=== PATIENT | female | born 1935 | race African-American/Black ===

== ENCOUNTER 2019-03-08 12:24 | Emergency (ER) | payer MEDICARE ==
[2019-03-08 13:33] LABS: #Eosinphils 0.2 thou/uL (0.0-0.7); #Lymphocytes 1.8 thou/uL (1.20-3.40); #Monocytes 0.5 thou/uL (0.11-0.59); #Neutrophils 2.5 thou/uL (1.40-6.50); %Basophils 0.1 % (0.0-1.0); %Eosinophils 4.3 % (0.0-10.0); %Lymphocytes 35.7 % (21.0-51.0); %Monocytes 10.3 % (0.0-10.0); %Neutrophils 49.6 % (42.0-75.0); Mean Corpuscular HGB CONC 31.1 g/dL (32.0-36.0); Mean Corpuscular Hemoglobin 24.8 pg (27.0-31.0); Mean Corpuscular Volume 79.8 fL (78.0-98.0); Mean Platelet Volume 8.7 fL (7.4-10.4); Platelet Count 173 thou/uL (130-400); RBC Distribution Width 13.5 % (11.5-14.5); Red Blood Cell (RBC) Count 5.24 mill/uL (4.20-5.40)
[2019-03-08 13:54] LABS: ALT (SGPT) 11 U/L (8-55); AST (SGOT) 19 U/L (5-34); Albumin 3.8 g/dL (3.4-4.8); Alkaline Phosphatase 87 U/L (40-150); Anion Gap 14 mmol/L (10-20); BUN (Urea Nitrogen) 22 mg/dL (9.8-20.1); Bilirubin, Total 0.4 mg/dL (0.2-1.2); Calc. Creatinine Clearance 0 mL/min (70-130); Carbon Dioxide 23 mmol/L (23-31); Chloride 106 mmol/L (98-107); Estimated GFR-MDRD 55; Globulin 3.5 g/dL (2.4-3.5); Glucose 98 mg/dL (83-110); Potassium 4.6 mmol/L (3.5-5.1); Protein, Total 7.3 g/dL (6.0-8.3); Sodium 138 mmol/L (136-145)
--- NOTE | 2019-03-08 13:58 | RAD ---
PORTABLE CHEST ONE VIEW: 03/08/19 at 1:38 p.m. HISTORY: Bilateral lower extremity swelling and chest pain. FINDINGS: The heart is enlarged. The aorta is tortuous. The lungs are expanded without lobar consolidation, pne umothoraces, jagjit pulmonary edema or pleural effusions. IMPRESSION: Cardiomegaly without evidence of overt CHF. POS: [facility]
== END 2019-03-08 15:12 | disposition home or self-care (01) ==
LOC: ERS 12:24
DX: M79.89 Other specified soft tissue disorders (principal)
CPT/HCPCS: 36415; 71045; 80053; 83880; 84484; 85025; 93005

== ENCOUNTER 2020-07-29 15:40 | Inpatient (IN) | payer MEDICARE, OTHER ==
--- NOTE | 2020-07-29 16:37 | RAD ---
Exam: Chest one view HISTORY:Headache Comparison: 02/28/2019 FINDINGS: Cardiac silhouette:Cardiomegaly Aorta: Elongated Pulmonary vessels: Normal Costophrenic angles: Clear LUNGS: Hyperinflation. Chronic changes. No consolidation or mass. Pneumothorax: None Osseous abnormalities: None IMPRESSION: No acute cardiopulmonary process.
[2020-07-29 16:57] LABS: #Eosinphils 0.1 thou/uL (0.0-0.7); #Lymphocytes 1.3 thou/uL (1.20-3.40); #Monocytes 0.6 thou/uL (0.11-0.59); #Neutrophils 2.5 thou/uL (1.40-6.50); %Basophils 0.4 % (0.0-1.0); %Eosinophils 2.9 % (0.0-10.0); %Lymphocytes 28.8 % (21.0-51.0); %Monocytes 12.3 % (0.0-10.0); %Neutrophils 55.7 % (42.0-75.0); Hemoglobin 12.8 g/dL (12.0-16.0); Mean Corpuscular HGB CONC 32.3 g/dL (32.0-36.0); Mean Corpuscular Hemoglobin 25.2 pg (27.0-31.0); Mean Corpuscular Volume 78.1 fL (78.0-98.0); Mean Platelet Volume 8.6 fL (7.4-10.4); Platelet Count 188 thou/uL (130-400); RBC Distribution Width 13.1 % (11.5-14.5); Red Blood Cell (RBC) Count 5.06 mill/uL (4.20-5.40); White Blood Cell (WBC) Count 4.5 thou/uL (4.8-10.8)
[2020-07-29 17:02] LABS: INR-International Normal Ratio 1.2; PTT 25.7 sec (22.9-36.1); Prothrombin Time 14.9 sec (12.0-14.7)
[2020-07-29 17:10] LABS: ALT (SGPT) 9 U/L (8-55); AST (SGOT) 18 U/L (5-34); Albumin 3.6 g/dL (3.4-4.8); Alkaline Phosphatase 81 U/L (40-110); Anion Gap 12 mmol/L (10-20); BUN (Urea Nitrogen) 31 mg/dL (9.8-20.1); Bilirubin, Total 0.4 mg/dL (0.2-1.2); CK (CPK) 104 U/L (29-168); Calc. Creatinine Clearance 0 mL/min (70-130); Calcium 8.8 mg/dL (7.8-10.44); Carbon Dioxide 25 mmol/L (23-31); Chloride 104 mmol/L (98-107); Estimated GFR-MDRD 40; Globulin 3.9 g/dL (2.4-3.5); Glucose 99 mg/dL (83-110); Potassium 3.7 mmol/L (3.5-5.1); Protein, Total 7.5 g/dL (6.0-8.3); Sodium 137 mmol/L (136-145)
[2020-07-29] MEDS ORDERED: Meclizine HCl 25 MG TAB ONE (17:21)
--- NOTE | 2020-07-29 17:39 | CT ---
Head CT without contrast 07/29/2020: COMPARISON: 05/27/2015 HISTORY: Headaches, dizziness TECHNIQUE: Axial CT imaging at 5 mm intervals from vertex through skull base without contrast FINDINGS: The visualized paranasal sinuses and mastoid air cells are well-aerated. No displaced lucie rial fracture, intracranial hemorrhage, midline shift, or mass effect. Stable calcification in the region of the basal ganglia and bilateral cerebellar hemispheres. IMPRESSION: Stable head CT-no acute findings.
[2020-07-29 17:52] LABS: Bilirubin Negative (Negative); Blood, Urine Negative (Negative); Clarity Clear (Clear); Glucose, Urine (Dipstick) Normal (Negative); Ketone, Urine Negative (Negative); Leukocyte Negative Leu/uL (Negative); Nitrite Negative (Negative); Protein, Urine (Dipstick) Negative (Neg-Trace); Specific Gravity, Urine 1.008 (1.002-1.036); Urobilinogen Normal mg/dL (Less than 2); pH, Urine 6.5 (5.0-9.0)
[2020-07-29] MEDS ORDERED: Aspirin 325 MG TAB ONE (19:09)
--- NOTE | 2020-07-29 19:49 | PDOC.HHP ---
Hospitalist HPI - History of Present Illness Dizziness History of Present Illness: PCP: Dr. Cortez (Ac and Janny) The patient is an 85-year-old female with a past medical history significant for hypertension, GERD and chronic back pain that presents to the emergency department for the above complaint. The patient reports waking in her usual health. She reports that she took a shower and then walked out to her porch this morning. As she was ambulating out to the porch, she became dizzy. She reports that she "felt like she was going to pass out". She denies any vertigo or LOC. She had to sit down in a chair. There is a reported complaint of headache in the ER note, however, the patient denies having a headache when I interviewed her. She reports that she had an associated change in vision, stating that her vision "went black". This lasted for unknown amount of time. She denies any changes in speech or focal motor deficits. She denies any recent fall or trauma. She denies any neck stiffness or fever. She denies loss with sense of smell, she has no known Covid contacts. Denies any recent surgery or change in her medications. She denies chest pain, heart palpitations. She reports chronic, mild swelling to her bilateral, lower extremities. Denies pain to lower extremities. No history of DVT/PE. Denies history of diabetes or any other endocrine conditions. She reports having a recent UTI, for which she took an unknown antibiotic for 2 weeks. She reports that she finished that antibiotic approximately 3 days ago. Currently, she denies any dysuria, urinary frequency or urgency. She has no vaginal discharge. She has no other complaints at this time. ED Course: VITAL SIGNS Burt Jul 29, 2020 15:41 EBONIE Chilel Lauren BP: 116/64, Pulse: 64, Resp: 16, Temp: 98.4 (Oral), Pain: 10, O2 sat: 98 on (Room Air), Time: 07/29/2020 15:41. VITAL SIGNS Burt Jul 29, 2020 16:33 EBONIE Rogers Jenifer BP: 108/49, MAP: 68, Pulse: 61, Resp: 21 (Non-Labored), Pain: 3, O2 sat: 97 on (Room Air), Time: 07/29/2020 16:33. VITAL SIGNS Burt Jul 29, 2020 16:39 EBONIE Kraus Emily BP: 108/49, MAP: 68, Pulse: 59, Resp: 19, O2 sat: 97 on (Room Air), Time: 07/29/2020 16:39. VITAL SIGNS ThuJul 29, 2020 17:24 EBONIE Landry Miranda BP: 119/58, Pulse: 57, Resp: 19, Time: 07/29/2020 17:24. VITAL SIGNS ThuJul 29, 2020 17:27 EBONIE Landry Miranda BP: 117/71 (Lying), Resp: 18, Time: 07/29/2020 17:27. VITAL SIGNS ThuJul 29, 2020 17:28 EBONIE Landry Miranda BP: 138/76 (Sitting), Resp: 15, Time: 07/29/2020 17:28. VITAL SIGNS ThuJul 29, 2020 17:29 EBONIE Landry Miranda BP: 141/74 (Standing), Time: 07/29/2020 17:29. VITAL SIGNS ThuJul 29, 2020 17:30 EBONIE Landry Miranda BP: 125/71 (Standing), Resp: 15, Time: 07/29/2020 17:30. VITAL SIGNS ThuJul 29, 2020 18:01 EBONIE Landry Miranda BP: 136/52, Pulse: 54, Resp: 17, O2 sat: 95 on (Room Air), Time: 07/29/2020 18:01. Medication administration: meclizine 25 mg Oral Given 17:23 07/29/2020 Aspirin 325mg oral Hospitalist ROS - Review of Systems All other systems reviewed; all pertinent +/- noted in HPI/Subj - Medication Medications: Patient unable to reconcile at bedside. Allergies: NKDA Hospitalist History - Past Medical History Source: patient, RN notes reviewed Cardiac: reports: HTN Gastrointestinal: reports: GERD Musculoskeletal: reports: Other (Chronic back pain) - Past Surgical History Past Surgical History: reports: , Other (Cervical surgery ()) - Family History Family History: reports: cardiac disorder (Both sons had myocardial infarction). denies: cerebrovascular accident - Social History Smoking Status: Never smoker Alcohol: reports: None Drugs: reports: none Living Situation: With Family Occupation: Retired Activity level: independent ambulation - Exam General Appearance: NAD, awake alert Eye: PERRL, anicteric sclera ENT: normocephalic atraumatic Neck: supple, symmetric, no JVD Heart: no murmur, no gallops, no rubs, normal peripheral pulses Heart - other findings: Intermittent bradycardia on monitor, 47 bpm Respiratory: CTAB, no wheezes, no rales, no ronchi, normal chest expansion, no tachypnea Gastrointestinal: soft, non-tender, non-distended, normal bowel sounds, no bruit, no guarding, no rigidity Gastrointestinal - other findings: Negative Rovsing sign, negative Fuentes sign Extremities: no cyanosis, 1+ LE edema Skin: no rashes Neurological: cranial nerve grossly intact, no focal deficits Musculoskeletal: normal tone, normal strength Psychiatric: normal affect, A&O x 3 Hospitalist Results - Labs Result Diagrams: 07/29/20 16:44 07/29/20 16:44 Lab results: WBC 4.5 thou/uL (4.8-10.8) L 07/29/20 16:44 Hgb 12.8 g/dL (12.0-16.0) 07/29/20 16:44 Hct 39.5 % (36.0-47.0) 07/29/20 16:44 MCV 78.1 fL (78.0-98.0) 07/29/20 16:44 Plt Count 188 thou/uL (130-400) 07/29/20 16:44 Neutrophils % 55.7 % (42.0-75.0) 07/29/20 16:44 Sodium 137 mmol/L (136-145) 07/29/20 16:44 Potassium 3.7 mmol/L (3.5-5.1) 07/29/20 16:44 Chloride 104 mmol/L (98-107) 07/29/20 16:44 Carbon Dioxide 25 mmol/L (23-31) 07/29/20 16:44 BUN 31 mg/dL (9.8-20.1) H 07/29/20 16:44 Creatinine 1.49 mg/dL (0.6-1.1) H 07/29/20 16:44 Glucose 99 mg/dL (83-110) 07/29/20 16:44 Calcium 8.8 mg/dL (7.8-10.44) 07/29/20 16:44 Total Bilirubin 0.4 mg/dL (0.2-1.2) 07/29/20 16:44 AST 18 U/L (5-34) 07/29/20 16:44 ALT 9 U/L (8-55) 07/29/20 16:44 Alkaline Phosphatase 81 U/L (40-110) 07/29/20 16:44 Creatine Kinase 104 U/L (29-168) 07/29/20 16:44 Troponin I Less than 0.010 ng/mL (< 0.028) 07/29/20 16:44 B-Natriuretic Peptide 79.2 pg/mL (0-100) 07/29/20 16:44 Serum Total Protein 7.5 g/dL (6.0-8.3) 07/29/20 16:44 Albumin 3.6 g/dL (3.4-4.8) 07/29/20 16:44 Urine Ketones Negative mg/dL (Negative) 07/29/20 17:38 Urine Blood Negative (Negative) 07/29/20 17:38 Urine Nitrite Negative (Negative) 07/29/20 17:38 Ur Leukocyte Esterase Negative Gaston/uL (Negative) 07/29/20 17:38 - EKG Interpretation EK lead EKG interpreted by Emergency Department Physician at time of study, 12 lead EKG shows normal sinus rhythm, Rate (beats per minute): 60, with no ectopics, Conduction with, incomplete right bundle branch block, first degree AV block, ST segments normal, T waves normal, Frankewing normal, Clinical impression:, non-specific EKG. - Radiology Interpretation Chest x-ray Status: report reviewed by me Additional Comment: IMPRESSION: No acute cardiopulmonary process. CT scan - head Status: report reviewed by me Additional Comment: IMPRESSION: Stable head CT-no acute findings Hospitalist H&P A/P - Problem (1) Near syncope Status: Acute (2) Symptomatic bradycardia Code(s): R00.1 - BRADYCARDIA, UNSPECIFIED Status: Acute (3) LUCIA (acute kidney injury) Code(s): N17.9 - ACUTE KIDNEY FAILURE, UNSPECIFIED Status: Acute (4) Constipation, chronic Code(s): K59.09 - OTHER CONSTIPATION Status: Chronic (5) Hypertension Code(s): I10 - ESSENTIAL (PRIMARY) HYPERTENSION Status: Chronic (6) GERD (gastroesophageal reflux disease) Code(s): K21.9 - GASTRO-ESOPHAGEAL REFLUX DISEASE WITHOUT ESOPHAGITIS Status: Chronic (7) Chronic back pain Code(s): M54.9 - DORSALGIA, UNSPECIFIED; G89.29 - OTHER CHRONIC PAIN Status: Chronic - Plan Plan: 85/F with PMH HTN, GERD, chronic back pain presents for near syncope. Admit to stroke unit, observation status. Expected length of stay less than 2 midnights. Presented stable vital signs. EKG NSR, incomplete RBBB, first-degree AV block. Troponin negative, BNP 79.2, CK 104. CXR Cardiomegaly, hyperinflated lungs. No acute cardiopulmonary process. Creatinine 1.49, BUN 31 CT brain no acute process. #Near syncope Rule out stroke. Order MRI, CD US, echocardiogram. Check TSH, FLP, mag level, folate and B12. Consult neurology and stroke team. Check orthostatic vital signs. Continue aspirin, start statin. Permissive hypertension. #Symptomatic bradycardia EKG as above. Reported sinus bradycardia 34 bpm on monitor at bedside per nursing. Upon assessment, heart monitor 47 bpm. Heart rate increased to greater than 60 bpm spontaneously. Patient asymptomatic at that time. Continue cardiac monitoring. Order echocardiogram. Consult cardiology. Check TSH, mag level. #LUCIA Presented creatinine 1.49, was 1.14 on 02/27. Reported recent ABX for UTI, unknown name. Denies any NSAIDs, diuretics, recent sore throat. Order renal ultrasound. Give gentle IV fluid resuscitation. Recheck levels in a.m. Avoid nephrotoxic medications. #Constipation, chronic Appears stable. LBM 2 days ago, which is normal for her. Takes milk of mag as needed. #Hypertension Presented normotensive. Unable to reconcile home medications at bedside. Family agreed to get home medication list and give to nurse. We will restart home medications as appropriate. #GERD Takes unknown medication at home. We will start Protonix. #Chronic back pain Appears stable. Does not take home medications for this condition. Heparin for DVT prophylaxis. Protonix for GI prophylaxis. Full code. Designated medical decision-maker is her daughter, Rema Tee at [phone]. Discussed case with Dr. Dee.
[2020-07-29] MEDS ORDERED: Ondansetron ODT 4 MG TAB PO PRN (20:29)
[2020-07-29] MEDS ORDERED: Calcium Carbonate 500 MG ChewTAB PO PRN (20:29)
[2020-07-29] MEDS ORDERED: Senokot S 8.6-50 MG TAB PO PRN (20:29)
[2020-07-29] MEDS ORDERED: Bisacodyl 5 MG TAB PO PRN (20:29)
[2020-07-29 21:45] LABS: Troponin I Less than 0.010 ng/mL (< 0.028)
[2020-07-29] MEDS: Sodium Chloride 0.9% 1,000 ML IV SCH (23:24)
[2020-07-29] MEDS: Heparin 5,000 UNITS/ML VIAL SC SCH (23:24)
[2020-07-29] MEDS: Atorvastatin Calcium 40 MG TAB PO SCH (23:25)
--- NOTE | 2020-07-29 23:33 | PDOC.EVN ---
Event Note - Event Note Event Note: Nursing reported 2 second pause and 2.2 second pause with junctional escape beat. Lowest HR 20s, BP 136/59. Patient was asymptomatic.
[2020-07-29 23:53] LABS: Troponin I Less than 0.010 ng/mL (< 0.028)
[2020-07-30 00:19] LABS: Amphetamine Not Detected (NotDetected); Barbiturates Screen Not Detected (NotDetected); Benzodiazepine Screen Not Detected (NotDetected); Cocaine Metabolite Screen Not Detected (NotDetected); Medtox Control Line Valid? VALID (VALID); Medtox Reader # READER 4; Methadone Not Detected (NotDetected); Methamphetamine Not Detected (NotDetected); Opiate Screen Not Detected (NotDetected); Oxycodone Screen Not Detected (NotDetected); Phencyclidine (PCP) Not Detected (NotDetected); THC/Cannabinoid Screen Not Detected (NotDetected); Tricyclic Screen Not Detected (NotDetected)
[2020-07-30 00:30] VITALS: BMI 32.9
[2020-07-30 04:33] LABS: #Eosinphils 0.2 thou/uL (0.0-0.7); #Lymphocytes 1.5 thou/uL (1.20-3.40); #Monocytes 0.4 thou/uL (0.11-0.59); #Neutrophils 1.9 thou/uL (1.40-6.50); %Basophils 0.7 % (0.0-1.0); %Eosinophils 3.9 % (0.0-10.0); %Lymphocytes 38.1 % (21.0-51.0); %Neutrophils 47.3 % (42.0-75.0); Hemoglobin 12.4 g/dL (12.0-16.0); Mean Corpuscular HGB CONC 31.1 g/dL (32.0-36.0); Mean Corpuscular Hemoglobin 24.4 pg (27.0-31.0); Mean Corpuscular Volume 78.4 fL (78.0-98.0); Mean Platelet Volume 8.6 fL (7.4-10.4); Platelet Count 190 thou/uL (130-400); RBC Distribution Width 13.2 % (11.5-14.5); Red Blood Cell (RBC) Count 5.09 mill/uL (4.20-5.40)
[2020-07-30] MEDS ORDERED: Lorazepam 2 MG/ML VIAL SLOW IVP SCH (04:45)
[2020-07-30 04:57] LABS: Anion Gap 11 mmol/L (10-20); BUN (Urea Nitrogen) 25 mg/dL (9.8-20.1); Calc. Creatinine Clearance 51 mL/min (70-130); Calcium 8.7 mg/dL (7.8-10.44); Carbon Dioxide 25 mmol/L (23-31); Cardiac Risk 4.7 (Less than 4.5); Chloride 106 mmol/L (98-107); Cholesterol 163 mg/dl (< 200 Desired); Estimated GFR-MDRD 56; Glucose 98 mg/dL (83-110); HDL Cholesterol 35 mg/dL (>60 Neg Risk); LDL Cholesterol, Calculated 108 mg/dL; Potassium 3.8 mmol/L (3.5-5.1); Sodium 138 mmol/L (136-145); Triglycerides 102 mg/dL (Less than 150)
[2020-07-30] MEDS: Sodium Chloride 0.9% 1,000 ML IV SCH ×2 (07:35→14:56)
--- NOTE | 2020-07-30 09:36 | ULT ---
EXAM: Carotid ultrasound HISTORY: Near syncope COMPARISON: None TECHNIQUE: Multiplanar grayscale and color Doppler images were obtained in a carotid ultrasound. Spec tral analysis of the Doppler waveforms were performed. FINDINGS: No significant plaque is visualized in either internal carotid artery. No significant plaque is seen in either common carotid artery. The Doppler waveforms are normal in the visualized vessels. Peak systolic velocity in the right internal carotid artery 90 cm/s. Peak systolic velocity in the right common carotid artery 77 cm/s. The right ICA/CCA ratio is 1.2. Peak systolic velocity in the left internal carotid artery 43 cm/s. Peak systolic velocity in the left common carotid artery 98 cm/s. The left ICA/CCA ratio is 0.4. Both vertebral arteries demonstrate antegrade flow without focal stenosis IMPRESSION: No evidence of hemodynamically significant stenosis.
--- NOTE | 2020-07-30 09:47 | ULT ---
ULTRASOUND RENAL BILATERAL STANDARD: HISTORY: Acute kidney injury. COMPARISON: None. FINDINGS: Real-time, broussard scale, and color evaluation of the kidneys and urinary bladder was performed. The right kidney measures 7.9 x 4.6 x 3.9 cm without mass, hydronephrosis, or abnormal calcifications . The left kidney measures 9.1 x 4.9 x 4.7 cm also without mass, hydronephrosis, or abnormal calcifi cations. Urinary bladder volume prevoid is 399 mL. IMPRESSION: No evidence for obstructive uropathy. POS: [facility]
[2020-07-30] MEDS: Aspirin 81 mg Enteric Coated Tablet PO SCH (10:07)
[2020-07-30] MEDS: Heparin 5,000 UNITS/ML VIAL SC SCH ×2 (10:08→23:28)
[2020-07-30 11:04] LABS: SARS-CoV-2 MS2 Positive; SARS-CoV-2 N Gene Negative; SARS-CoV-2 S Gene Negative; SARS-CoV-2 by NAA Not Detected (NotDetected); SARS-CoV-2 orf1ab Negative
--- NOTE | 2020-07-30 12:24 | PDOC.HOSPP ---
- Subjective Encounter Date: 07/30/20 Subjective: The patient denies any chest pain or shortness of breath. Her dizziness has now resolved. - Objective Vital Signs & Weight: Vital Signs (12 hours) Temp Pulse Resp BP Pulse Ox 07/30/20 11:38 97.8 F 59 L 18 202/68 H 95 07/30/20 07:25 97.2 F L 63 15 153/60 H 99 07/30/20 04:24 97.8 F 59 L 16 148/66 H 100 07/30/20 00:24 96 Weight Weight 191 lb 11.2 oz Result Diagrams: 07/30/20 04:06 07/30/20 04:06 Hospitalist ROS - Medication Medications: Active Medications Generic Name Dose Route Start Last Admin Trade Name Freq PRN Reason Stop Dose Admin Aspirin 81 mg 07/30/20 09:00 07/30/20 10:07 Aspirin 81 Mg Enteric Coated Tablet PO 81 mg DAILY CAROL Administration Atorvastatin Calcium 40 mg 07/29/20 21:00 07/29/20 23:25 Atorvastatin Calcium 40 Mg Tab PO 40 mg HS CAROL Administration Heparin Sodium (Porcine) 5,000 units 07/29/20 21:00 07/30/20 10:08 Heparin 5,000 Units/Ml Vial SC 5,000 units BID CAROL Administration Sodium Chloride 1,000 mls @ 100 mls/hr 07/29/20 20:30 07/30/20 07:35 Normal Saline 0.9% IV Not Given .Q10H CAROL Pantoprazole Sodium 40 mg 07/30/20 09:00 07/30/20 10:08 Pantoprazole 40 Mg Tab PO 40 mg DAILY CAROL Administration - Exam General Appearance: awake alert ENT: normocephalic atraumatic Neck: supple, no JVD Respiratory: normal chest expansion, no tachypnea Gastrointestinal: soft, non-tender, non-distended Neurological: cranial nerve grossly intact, no focal deficits Hosp A/P (1) Near syncope Status: Acute (2) Symptomatic bradycardia Code(s): R00.1 - BRADYCARDIA, UNSPECIFIED Status: Acute (3) GERD (gastroesophageal reflux disease) Code(s): K21.9 - GASTRO-ESOPHAGEAL REFLUX DISEASE WITHOUT ESOPHAGITIS Status: Chronic (4) Hypertension Code(s): I10 - ESSENTIAL (PRIMARY) HYPERTENSION Status: Chronic - Plan Symptomatic bradycardia causing near syncopal episode. Patient is alternating between sinus bradycardia and junctional rhythm. Cardiology service consulted. Neurological event is unlikely. MRI has been canceled. We will have an accurate list of her home medications as of now. I will review them once we obtain them. We will discontinue any chronotropic medications. Her blood pressure is currently uncontrolled. Start amlodipine 10 mg orally daily.
--- NOTE | 2020-07-30 12:26 | CON ---
NEUROLOGY CONSULTATION DATE OF CONSULTATION: 07/30/2020 REASON FOR CONSULTATION: Dizziness. HISTORY OF PRESENT ILLNESS: Ms. Blake is an 85-year-old female with medical history significant for hypertension, GERD, and back pain, presented to the emergency room with dizziness. Per patient, she woke up in her usual health and took a shower and walked out of the porch yesterday morning when she became extremely dizzy. She felt as if she is going to pass out. The patient denies the room spinning in front of her eyes and did not lose consciousness. She also denies focal weakness, focal paresthesias, nausea, vomiting, headache, chest pain, abdominal pain, recent illness, loss of spell, or recent exposure to COVID. Per patient, she does have an associated change in vision and her vision went black for unknown amount of time. She denies any problems with speech or swallowing. In the emergency room she was given meclizine and aspirin, and admitted for further evaluation. REVIEW OF SYSTEMS: All systems were reviewed and were negative except for the pertinent positives and negatives mentioned in the HPI. PAST MEDICAL HISTORY: Hypertension, GERD, chronic back pain. PAST SURGICAL HISTORY: section, cervical surgery in 1989. FAMILY HISTORY: Coronary artery disease. Both sons have myocardial infarction. SOCIAL HISTORY: The patient denies smoking, alcohol, or illegal drug use. Vital Signs & Weight: Vital Signs (12 hours) Temp Pulse Resp BP Pulse Ox 07/30/20 11:38 97.8 F 59 L 18 202/68 H 95 07/30/20 07:25 97.2 F L 63 15 153/60 H 99 07/30/20 04:24 97.8 F 59 L 16 148/66 H 100 07/30/20 00:24 96 Weight Weight 191 lb 11.2 oz : Active Medications Generic Name Dose Route Start Last Admin Trade Name Freq PRN Reason Stop Dose Admin Aspirin 81 mg 07/30/20 09:00 07/30/20 10:07 Aspirin 81 Mg Enteric Coated Tablet PO 81 mg DAILY CAROL Administration Atorvastatin Calcium 40 mg 07/29/20 21:00 07/29/20 23:25 Atorvastatin Calcium 40 Mg Tab PO 40 mg HS CAROL Administration Heparin Sodium (Porcine) 5,000 units 07/29/20 21:00 07/30/20 10:08 Heparin 5,000 Units/Ml Vial SC 5,000 units BID CAROL Administration Sodium Chloride 1,000 mls @ 100 mls/hr 07/29/20 20:30 07/30/20 07:35 Normal Saline 0.9% IV Not Given .Q10H CAROL Pantoprazole Sodium 40 mg 07/30/20 09:00 07/30/20 10:08 Pantoprazole 40 Mg Tab PO 40 mg DAILY CAROL Administration PHYSICAL EXAMINATION: General Appearance: awake alert ENT: normocephalic atraumatic Neck: supple, no JVD Respiratory: normal chest expansion, no tachypnea Gastrointestinal: soft, non-tender, non-distended Neurological: Mental status; the patient is alert and oriented to person, place, and time. Recent and remote memory intact. Speech is clear. Motor, muscle tone, and bulk are normal. Strength 5/5 bilaterally. Sensory intact. Cerebellar; finger-nose testing intact. Gait deferred due to patient's safety reasons. DATA REVIEWED: I reviewed the labs, which are significant for BUN of 31 and creatinine of 1.49. Rest were essentially unremarkable. Chest x-ray did not reveal acute cardiopulmonary process. Head CT did not reveal any acute finding. ASSESSMENT AND PLAN: (1) Near syncope Status: Acute (2) Symptomatic bradycardia Code(s): R00.1 - BRADYCARDIA, UNSPECIFIED Status: Acute (3) GERD (gastroesophageal reflux disease) Code(s): K21.9 - GASTRO-ESOPHAGEAL REFLUX DISEASE WITHOUT ESOPHAGITIS Status: Chronic (4) Hypertension Code(s): I10 - ESSENTIAL (PRIMARY) HYPERTENSION Status: Chronic Ms. Blake is an 85-year-old female with medical history significant for hypertension, gastroesophageal reflux disease, chronic back pain, presented with an episode of near-syncope and dizziness. She was admitted to the stroke unit for further evaluation. Telemetry is abnormal sinus bradycardia alternating with junctional rhythm. Cardiology input is requested. Head CT reviewed, which did not reveal any acute intracranial pathology. Presyncopal reaction secondary to cardiac issues. Intracranial pathology seems less likely. Continue medical management per primary team, PT/OT/Speech. Thank you for the consult. Job ID: [id number]
[2020-07-30] MEDS ORDERED: Amlodipine 10 MG TAB PO SCH (12:30)
--- NOTE | 2020-07-30 13:20 | CON ---
DATE OF CONSULTATION: 07/30/2020 INDICATION FOR CONSULTATION: An 85-year-old female with symptomatic bradycardia. HISTORY OF PRESENT ILLNESS: This is a very pleasant 85-year-old female, who has had no previous cardiac history that she is aware of except for hypertension. She apparently had some stress test several years ago, was uncertain as to why she had a stress test. This was performed at [facility] and said it apparently was unremarkable. She has had no cardiac catheterization or further evaluation. She presented to the emergency room due to chronic back pain apparently, but she apparently had some presyncopal episodes or syncope. She became dizzy that she was going to pass out, but apparently, she has not had a jagjit syncopal episodes. She did have some symptoms saying that since just everything went black, but she did pass out. She does say this has been ongoing for several months apparently. She after being evaluated and admitted to the hospital, she was found to have significant bradycardia, heart rates in the 20s at times. She has had several pauses of 3 to 3.5 seconds and these have been symptomatic. She had one this morning, most recently around 8 o'clock this morning with a 3.5 second pause. She then had episodes of junctional escape rhythms. She is on medications, but we are uncertain whether or not she is on a significant dose of beta blockers, but still she should not have this sort of sudden onset of bradycardia and junctional escape rhythm. We will try to obtain the records from her Pharmacy, to see exactly what medicine she is taking. She denies any chest pain. She does have some shortness of breath or dyspnea when she exerts, but is able to walk and does not have any overt shortness of breath at this time. PAST MEDICAL HISTORY: Significant for hypertension. She has had neck surgery in cervical area. Otherwise, she appears to be relatively unremarkable. She has been relatively healthy despite her age. She has had some C-sections and otherwise has had no significant past medical history. REVIEW OF SYSTEMS: Review of systems is unremarkable except what is noted in history of present illness. MEDICATIONS: Still pending. ALLERGIES: THERE ARE NO KNOWN DRUG ALLERGIES. FAMILY HISTORY: Noncontributory. She did have one brother, who has some coronary artery disease over the age of 60. PHYSICAL EXAMINATION: GENERAL: Reveals a well-developed, well-nourished, very pleasant female. VITAL SIGNS: Blood pressure is 153/60 and earlier was 148/66. Heart rate at this time is in the 50s to 60s. She is afebrile. Respiratory rate is 15. HEENT: Shows the head to be normocephalic and atraumatic. Carotid pulses are present. I do not hear any bruits. She has a well-healed surgical incision on the posterior upper neck area or spinal area after having surgical procedure years ago. This is well healed. CHEST: Clear to auscultation without rales, rhonchi, or wheezing. CARDIOVASCULAR: Reveals a somewhat bradycardia, but regular rhythm. No significant ectopy. No gross murmurs were noted. ABDOMEN: Soft and nontender. Positive bowel sounds are present. EXTREMITIES: Showed no clubbing, cyanosis, or edema. Pedal pulses are present. NEUROLOGIC: She appears to be intact. There were no gross focal motor deficits noted. SKIN: Warm and dry. LABORATORY DATA: WBCs 4, hemoglobin 12.4, and platelet count was 190,000. Sodium is 138, potassium is 3.8, BUN is 25, creatinine is 1.13, and her LDL is 108. Cardiac enzymes are negative. Urinalysis does not show any evidence of a UTI. She is COVID-19 negative. EKG is noted for the sinus bradycardia and pauses of up to 3.5 seconds with heart rates at times in the 20s. Her admitting EKG showed a sinus rhythm with a heart rate of about 60 with a first-degree AV heart block, but no other significant changes. No indication of ischemia. She did have T-wave inversions in V1 and V2 with somewhat small R-wave; however, not indicative of myocardial infarction. This may be related to her hypertension. IMPRESSION AND PLAN: 1. Symptomatic bradycardia with significant pauses of more than 3.5 seconds with heart rates in the 20s, but advised her that she needs to undergo a pacemaker insertion. We will try to plan this for today as long as the patient is in agreement with this, which she is still trying to discuss with her family whether or not she will agree to the pacemaker. I did explain the procedure and risks to include bleeding, infection, possibility of pneumothorax, hemothorax or pericardial tamponade. She does understand, but if she agrees to proceed, we will plan for later today. 2. History of hypertension. When she is placed back on her medications, I suspect her blood pressure will stabilize. She has been held n.p.o. for possible pacemaker. 3. History of some dyspnea on exertion, but she has had a stress test in the past and denies any chest pain. At some point in time, most likely, she will need to undergo a repeat stress test due to her age and the symptoms of shortness of breath. 4. History of chronic back pain. This will be dealt with by the primary care service. 5. History of some gastroesophageal reflux disease, also being dealt with by the Primary Care Service. As soon as we have a decision from the patient, we would proceed with a pacemaker or the patient will be monitored very carefully. We will need to review her medications. If she is in a significant dose of beta girish or calcium blockers that may be making her bradycardic, then these will need to be held and we will try to find some other mechanism for treating her blood pressure if necessary. Still in my opinion, she will need to undergo pacemaker insertion as regard to the dose of the beta blockers. She has a sinus flip and then develops significant pauses and then junctional escape rhythm, which was most likely still persist even if the beta blockers were decreased if she is on them. Job ID: [id number]
[2020-07-30] MEDS ORDERED: CEFAZOLIN 1 GM VIAL ONE (13:33)
[2020-07-30] MEDS ORDERED: Gentamicin 80 MG/2 ML VIAL ONE (13:33)
[2020-07-30] MEDS ORDERED: Lidocaine 1% (PF) 30 ML VIAL ONE (13:33)
[2020-07-30] MEDS: hydrALAZINE 25 MG TAB PO SCH ×2 (14:59→23:27)
[2020-07-30] MEDS: Atorvastatin Calcium 40 MG TAB PO SCH (23:27)
[2020-07-31] MEDS: Ondansetron PF 4 MG/2 ML Vial IVP PRN ×2 (01:19→10:19)
[2020-07-31] MEDS: Acetaminophen 325 MG TAB PO PRN ×3 (01:19→15:47)
[2020-07-31] MEDS: Sodium Chloride 0.9% 1,000 ML IV SCH ×2 (03:38→14:29)
[2020-07-31 05:04] LABS: #Eosinphils 0.1 thou/uL (0.0-0.7); #Lymphocytes 1.4 thou/uL (1.20-3.40); #Monocytes 0.3 thou/uL (0.11-0.59); #Neutrophils 4.8 thou/uL (1.40-6.50); %Basophils 0.3 % (0.0-1.0); %Eosinophils 1.1 % (0.0-10.0); %Lymphocytes 20.6 % (21.0-51.0); %Monocytes 5.2 % (0.0-10.0); %Neutrophils 72.8 % (42.0-75.0); Hemoglobin 12.2 g/dL (12.0-16.0); Mean Corpuscular HGB CONC 30.6 g/dL (32.0-36.0); Mean Corpuscular Hemoglobin 23.8 pg (27.0-31.0); Mean Corpuscular Volume 77.5 fL (78.0-98.0); Mean Platelet Volume 8.4 fL (7.4-10.4); Platelet Count 208 thou/uL (130-400); RBC Distribution Width 13.1 % (11.5-14.5); Red Blood Cell (RBC) Count 5.14 mill/uL (4.20-5.40); White Blood Cell (WBC) Count 6.6 thou/uL (4.8-10.8)
[2020-07-31 05:26] LABS: Anion Gap 13 mmol/L (10-20); BUN (Urea Nitrogen) 20 mg/dL (9.8-20.1); Calc. Creatinine Clearance 50 mL/min (70-130); Calcium 8.7 mg/dL (7.8-10.44); Carbon Dioxide 22 mmol/L (23-31); Chloride 109 mmol/L (98-107); Estimated GFR-MDRD 55; Glucose 116 mg/dL (83-110); Potassium 3.9 mmol/L (3.5-5.1); Sodium 140 mmol/L (136-145)
[2020-07-31] MEDS ORDERED: Lidocaine 1% (PF) 30 ML VIAL ONE (08:05)
[2020-07-31] MEDS ORDERED: CEFAZOLIN 1 GM VIAL ONE (08:05)
[2020-07-31] MEDS ORDERED: Gentamicin 80 MG/2 ML VIAL ONE (08:05)
[2020-07-31] MEDS ORDERED: Midazolam HCl 2 mg/2 ml Vial ONE (08:47)
--- NOTE | 2020-07-31 10:21 | RAD ---
EXAM: Single view of the chest HISTORY: Pacemaker placement COMPARISON: 07/29/2020 FINDINGS: Single view of the chest shows an enlarged but stable cardiomediastinal silhouette. There is a left subclavian pacemaker with its leads in the right atrium and ventricle. No pneumothorax is seen. There is no evidence of consolidation, mass, or pleural effusion. Degenerative changes are see n in the spine. IMPRESSION: No evidence of acute cardiopulmonary disease
[2020-07-31] MEDS: hydrALAZINE 25 MG TAB PO SCH ×2 (10:26→14:29)
[2020-07-31] MEDS: Amlodipine 10 MG TAB PO SCH (10:27)
[2020-07-31] MEDS: Aspirin 81 mg Enteric Coated Tablet PO SCH (10:27)
[2020-07-31] MEDS: Heparin 5,000 UNITS/ML VIAL SC SCH ×2 (10:28→21:48)
[2020-07-31] MEDS ORDERED: Morphine 2 MG/ML VIAL SLOW IVP SCH (11:45)
--- NOTE | 2020-07-31 12:22 | PDOC.HOSPP ---
- Subjective Encounter Date: 07/31/20 Subjective: The patient was seen and examined. Status post pacemaker placement. She is complaining of pain at the insertion site. High blood pressure is uncontrolled. - Objective Vital Signs & Weight: Vital Signs (12 hours) Temp Pulse Resp BP Pulse Ox 07/31/20 11:16 97.7 F 93 16 199/87 H 96 07/31/20 10:27 85 07/31/20 10:26 85 07/31/20 07:25 97.7 F 85 15 162/70 H 96 Weight Weight 191 lb 11.2 oz I&O: 07/30/20 07/31/20 08/01/20 06:59 06:59 06:59 Intake Total 2493 Balance 2493 Result Diagrams: 07/31/20 04:49 07/31/20 04:49 Hospitalist ROS - Medication Medications: Active Medications Generic Name Dose Route Start Last Admin Trade Name Freq PRN Reason Stop Dose Admin Acetaminophen 650 mg 07/29/20 20:29 07/31/20 10:26 Acetaminophen 325 Mg Tab PO 650 mg Q4H PRN Administration Headache/Fever/Mild Pain (1-3) Amlodipine Besylate 10 mg 07/31/20 09:00 07/31/20 10:27 Amlodipine 10 Mg Tab PO 10 mg DAILY CAROL Administration Aspirin 81 mg 07/30/20 09:00 07/31/20 10:27 Aspirin 81 Mg Enteric Coated Tablet PO 81 mg DAILY CAROL Administration Atorvastatin Calcium 40 mg 07/29/20 21:00 07/30/20 23:27 Atorvastatin Calcium 40 Mg Tab PO 40 mg HS CAROL Administration Heparin Sodium (Porcine) 5,000 units 07/29/20 21:00 07/31/20 10:28 Heparin 5,000 Units/Ml Vial SC Not Given BID CAROL Hydralazine HCl 75 mg 07/30/20 15:00 07/31/20 10:26 Hydralazine 25 Mg Tab PO 75 mg TID CAROL Administration Sodium Chloride 1,000 mls @ 100 mls/hr 07/29/20 20:30 07/31/20 03:38 Normal Saline 0.9% IV 1,000 mls .Q10H CAROL Administration Morphine Sulfate 2 mg 07/31/20 11:45 07/31/20 11:50 Morphine 2 Mg/Ml Vial SLOW IVP 07/31/20 13:00 2 mg NOW CAROL Administration Ondansetron HCl 4 mg 07/29/20 20:29 07/31/20 10:19 Ondansetron Pf 4 Mg/2 Ml Vial IVP 4 mg Q6H PRN Administration Nausea/Vomiting Pantoprazole Sodium 40 mg 07/30/20 09:00 07/31/20 10:27 Pantoprazole 40 Mg Tab PO 40 mg DAILY CAROL Administration Sodium Chloride 10 ml 07/30/20 21:00 07/31/20 10:22 Flush - Normal Saline 10 Ml Syringe IVF Not Given Q12HR CAROL Sodium Chloride 10 ml 07/30/20 20:09 07/31/20 01:19 Flush - Normal Saline 10 Ml Syringe IVF 10 ml PRN PRN Administration Saline Flush - Exam General Appearance: awake alert ENT: normocephalic atraumatic Neck: supple, no JVD Heart: RRR, no murmur, no gallops, no rubs Respiratory: normal chest expansion, no tachypnea Extremities: no cyanosis, no clubbing Neurological: cranial nerve grossly intact Hosp A/P (1) Near syncope Status: Acute (2) Symptomatic bradycardia Code(s): R00.1 - BRADYCARDIA, UNSPECIFIED Status: Acute (3) GERD (gastroesophageal reflux disease) Code(s): K21.9 - GASTRO-ESOPHAGEAL REFLUX DISEASE WITHOUT ESOPHAGITIS Status: Chronic (4) Hypertension Code(s): I10 - ESSENTIAL (PRIMARY) HYPERTENSION Status: Chronic - Plan Symptomatic bradycardia causing near syncopal episode. Status post pacemaker placement. Neurological event is unlikely. MRI has been canceled. The patient's blood pressure is uncontrolled. This is likely rebound hypertension given that she did not receive her clonidine and hydrochlorothiazide yesterday since we did not have an accurate medication list. I will restart those this afternoon and monitor her response.
[2020-07-31] MEDS ORDERED: cloNIDine 0.1 MG TAB PO SCH ×3 (14:45→21:00)
[2020-07-31] MEDS ORDERED: Hydrochlorothiazide 25 MG TAB PO SCH (14:45)
[2020-07-31] MEDS: Acetaminophen/Codeine 30-300mg Tablet PO PRN (21:33)
[2020-07-31] MEDS: Atorvastatin Calcium 40 MG TAB PO SCH (21:41)
[2020-07-31] MEDS: cloNIDine 0.1 MG TAB PO SCH (21:41)
[2020-08-01] MEDS: hydrALAZINE 25 MG TAB PO SCH ×2 (01:42→09:22)
[2020-08-01 04:34] LABS: #Eosinphils 0.1 thou/uL (0.0-0.7); #Lymphocytes 1.5 thou/uL (1.20-3.40); #Monocytes 0.6 thou/uL (0.11-0.59); #Neutrophils 3.4 thou/uL (1.40-6.50); %Basophils 0.7 % (0.0-1.0); %Eosinophils 1.1 % (0.0-10.0); %Lymphocytes 26.3 % (21.0-51.0); %Monocytes 11.2 % (0.0-10.0); %Neutrophils 60.7 % (42.0-75.0); Hemoglobin 11.5 g/dL (12.0-16.0); Mean Corpuscular HGB CONC 30.8 g/dL (32.0-36.0); Mean Corpuscular Hemoglobin 24.1 pg (27.0-31.0); Mean Corpuscular Volume 78.2 fL (78.0-98.0); Mean Platelet Volume 8.6 fL (7.4-10.4); Platelet Count 166 thou/uL (130-400); RBC Distribution Width 13.3 % (11.5-14.5); Red Blood Cell (RBC) Count 4.79 mill/uL (4.20-5.40); White Blood Cell (WBC) Count 5.5 thou/uL (4.8-10.8)
[2020-08-01 04:54] LABS: Anion Gap 10 mmol/L (10-20); BUN (Urea Nitrogen) 17 mg/dL (9.8-20.1); Calc. Creatinine Clearance 47 mL/min (70-130); Calcium 8.2 mg/dL (7.8-10.44); Carbon Dioxide 22 mmol/L (23-31); Chloride 108 mmol/L (98-107); Estimated GFR-MDRD 51; Glucose 103 mg/dL (83-110); Potassium 3.5 mmol/L (3.5-5.1); Sodium 136 mmol/L (136-145)
[2020-08-01] MEDS: Acetaminophen/Codeine 30-300mg Tablet PO PRN (08:11)
[2020-08-01] MEDS ORDERED: Valsartan 80 MG TAB PO SCH (09:00)
[2020-08-01] MEDS ORDERED: Hydrochlorothiazide 25 MG TAB PO SCH ×3 (09:00)
[2020-08-01] MEDS: Amlodipine 10 MG TAB PO SCH (09:23)
[2020-08-01] MEDS: cloNIDine 0.1 MG TAB PO SCH (09:24)
[2020-08-01] MEDS: Aspirin 81 mg Enteric Coated Tablet PO SCH (09:24)
[2020-08-01] MEDS: Heparin 5,000 UNITS/ML VIAL SC SCH (09:25)
[2020-08-01 11:16] VITALS: TEMP 98.1
[2020-08-01 13:26] VITALS: BP 112/60
--- NOTE | 2020-08-02 11:16 | CCLSPC ---
INDICATION FOR PROCEDURE: An 85-year-old female with symptomatic bradycardia, heart rates in the 20s with pauses of more than 3 seconds. She was advised to undergo dual chamber pacemaker insertion. She was taken to [facility], where she was prepped and draped in sterile fashion and underwent the procedure today without difficulties or complications. A full dictated note can be found on the chart. She was implanted with a dual chamber pacemaker from [employer] with 2 screw-in leads, 6 leads, 1 in the atrium and 1 in the ventricle. She was implanted with an Adapta IS-1 dual-chamber pacemaker. It is an MRI compatible device. The upper rate was set at 120, the lower rate was set at 60. There were no difficulties or complications encountered. Job ID: [id number]
--- NOTE | 2020-08-03 14:05 | DIS ---
DATE OF ADMISSION: 07/31/2020 DATE OF DISCHARGE: 08/01/2020 DISCHARGE DIAGNOSES: 1. Symptomatic bradycardia. 2. Near syncope. 3. Gastroesophageal reflux disease. 4. Hypertension. DISCHARGE MEDICATIONS: 1. Aspirin 81 mg orally daily. 2. Atorvastatin 40 mg orally nightly. 3. Amlodipine 10 mg orally daily. 4. Fioricet 1 tablet q.6 hours as needed for headache. 5. Clonidine 0.1 mg orally b.i.d. 6. HCTZ 25 mg orally daily. 7. Valsartan 320 mg orally daily. 8. Gabapentin 300 mg orally t.i.d. 9. Hydroxyzine 25 mg orally nightly as needed for insomnia. HISTORY OF PRESENT ILLNESS AND HOSPITAL COURSE: The patient is an 85-year-old female with past medical history of hypertension, who presented to the hospital with complaints of feeling dizzy and almost passing out. The patient was found to be bradycardic and on tele monitor, she had heart rates in the 20s with several pauses. Cardiology Service was consulted in light of her significant bradycardia and pauses. A pacemaker was inserted successfully. The patient was monitored for another 24 hours and the functionality of the pacemaker were adequate. Job ID: [id number]
== END 2020-08-01 13:39 | disposition home or self-care (01) | DRG 243 ==
LOC: ERS 15:40 → 2SE 18:55 → OBSVTOIN 07-31 11:19
PROVIDERS: ADMIT Family Medicine; ATTEND Family Medicine
PROC: 0JH606Z Insertion of Pacemaker, Dual Chamber into Chest Subcutaneous Tissue and Fascia, Open Approach (ICD-10-PCS; principal; 2020-07-31)
PROC: 02H63JZ Insertion of Pacemaker Lead into Right Atrium, Percutaneous Approach (ICD-10-PCS; 2020-07-31)
PROC: 02HK3JZ Insertion of Pacemaker Lead into Right Ventricle, Percutaneous Approach (ICD-10-PCS; 2020-07-31)
DX: R00.1 Bradycardia, unspecified (principal); N17.9 Acute kidney failure, unspecified; I10 Essential (primary) hypertension; K21.9 Gastro-esophageal reflux disease without esophagitis; G89.29 Other chronic pain; K59.09 Other constipation; M54.9 Dorsalgia, unspecified; Z20.828 Contact with and (suspected) exposure to other viral communicable diseases; Z79.899 Other long term (current) drug therapy
CPT/HCPCS: 33208; 36415; 70450; 71045; 76770; 80048; 80053; 80061; 80306; 81003; 82550; 82607; 82746; 83735; 83880; 84443; 84484; 85025; 85610; 85730; 86850; 86900; 86901; 87635; 93005; 93306; 93798; 93880; 94760; 96374; 97139; 99152; 99153; C1785; C1898; G0378; J0690; J1580; J1644; J2001; J2250; J2270; J2405; U0003

== ENCOUNTER 2020-08-05 17:03 | Observation (INO) | payer MEDICARE, OTHER ==
[~2020-08-05 17:03] MED LIST: Iopamidol-370 76% 500 ML 1 ML ONE
[2020-08-05 17:44] LABS: #Basophils 0.1 thou/uL (0.0-0.2); #Eosinphils 0.1 thou/uL (0.0-0.7); #Monocytes 0.8 thou/uL (0.11-0.59); #Neutrophils 3.7 thou/uL (1.40-6.50); %Eosinophils 1.8 % (0.0-10.0); %Lymphocytes 30.6 % (21.0-51.0); %Monocytes 11.3 % (0.0-10.0); %Neutrophils 55.3 % (42.0-75.0); Hemoglobin 12.8 g/dL (12.0-16.0); Mean Corpuscular HGB CONC 32.3 g/dL (32.0-36.0); Mean Corpuscular Hemoglobin 25.3 pg (27.0-31.0); Mean Corpuscular Volume 78.3 fL (78.0-98.0); Mean Platelet Volume 8.2 fL (7.4-10.4); Platelet Count 184 thou/uL (130-400); RBC Distribution Width 13.3 % (11.5-14.5); Red Blood Cell (RBC) Count 5.07 mill/uL (4.20-5.40); White Blood Cell (WBC) Count 6.7 thou/uL (4.8-10.8)
[2020-08-05 18:12] LABS: ALT (SGPT) 13 U/L (8-55); AST (SGOT) 21 U/L (5-34); Albumin 3.9 g/dL (3.4-4.8); Alkaline Phosphatase 80 U/L (40-110); Anion Gap 15 mmol/L (10-20); BUN (Urea Nitrogen) 18 mg/dL (9.8-20.1); Bilirubin, Total 0.5 mg/dL (0.2-1.2); Calc. Creatinine Clearance 0 mL/min (70-130); Calcium 8.8 mg/dL (7.8-10.44); Carbon Dioxide 23 mmol/L (23-31); Chloride 101 mmol/L (98-107); Estimated GFR-MDRD 42; Glucose 109 mg/dL (83-110); Potassium 3.6 mmol/L (3.5-5.1); Protein, Total 7.9 g/dL (6.0-8.3); Sodium 135 mmol/L (136-145)
[2020-08-05] MEDS ORDERED: Magnesium 2 GM/50 ML BAG (IN WATER) ONE (18:18)
--- NOTE | 2020-08-05 18:43 | ULT ---
LEFT LOWER EXTREMITY VENOUS DUPLEX EXAM: History: Left leg pain and swelling FINDINGS: Real-time color doppler evaluation of the left lower extremity was performed from groin to calf. This includes evaluation of the common femoral, superficial and profunda femoral, saphenous, popliteal, a nd posterior tibial veins. This shows a patent deep venous system. There is normal compressibility and augmentation. There is no evidence of DVT. IMPRESSION: No evidence of DVT in the left lower extremity. POS: OFF
--- NOTE | 2020-08-05 18:50 | RAD ---
PORTABLE CHEST: History: Leg swelling FINDINGS: Heart size appears slightly enlarged. A pacemaker is present. The lungs are clear of infiltrates. The re is some linear change in the right base consistent with atelectasis or scarring. IMPRESSION: Cardiomegaly. No signs of failure. POS: OFF
[2020-08-05 20:00] LABS: Bilirubin Negative (Negative); Blood, Urine Negative (Negative); Clarity Clear (Clear); Glucose, Urine (Dipstick) Normal (Negative); Ketone, Urine Negative (Negative); Leukocyte Negative Leu/uL (Negative); Nitrite Negative (Negative); Protein, Urine (Dipstick) Negative (Neg-Trace); Specific Gravity, Urine 1.008 (1.002-1.036); Urobilinogen Normal mg/dL (Less than 2); pH, Urine 6.5 (5.0-9.0)
--- NOTE | 2020-08-05 21:16 | CT ---
CT ANGIO OF CHEST PERFORMED WITH INTRAVENOUS CONTRAST ENHANCEMENT WITH 3D RECONSTRUCTION: History: Increasing shortness of breath. Positive D-Dimer. Leg swelling. FINDINGS: Lungs show some bibasilar changes compatible with atelectasis versus developing infiltrates. Some min imal right upper lobe parenchymal change also seen. This may represent more of an area of scarring. T he changes in the bases have a slightly ground glass appearance but not the typical ground glass infi ltrates of Covid. No pulmonary nodules or pleural effusions. 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 There is a very narrowed AP dimension of the trachea at the level of the lorena and both the right and left main stem bronchi are narrowed at their takeoff. There is p athologic appearing mediastinal adenopathy. Confluent right paratracheal nodes. There are multiple pe rivascular nodes measuring in the 10-12 mm range. There is adenopathy in the azygoesophageal recess r egion and some mild hilar adenopathy, slightly more prominent on the left. There is also a mild peric ardial effusion. The thoracic aorta is normal in caliber. There is good pulmonary artery opacification and no CT evide nce for pulmonary embolus. The visualized liver parenchyma shows no focal findings. Right and left ad renal glands are normal. IMPRESSION: 1. Bibasilar lung changes consistent with atelectasis or developing infiltrates. 2. Pathologic appearing adenopathy within the mediastinum. This is more prominent than your typical r eactive nodes. There is also some mild hilar adenopathy. Etiology of this is unclear. An entity such as lymphoma would be a consideration. 3. No CT evidence for pulmonary embolus. 4. Mild sized pericardial effusion. 5. Arthritic changes of the spine with some diffuse bony demineralization. POS: OFF
[2020-08-05] MEDS ORDERED: Cefepime 2 GM VIAL ONE (21:30)
[2020-08-05] MEDS ORDERED: Acetaminophen 325 MG TAB PO PRN (21:54)
--- NOTE | 2020-08-05 22:24 | PDOC.EVN ---
Event Note - Event Note Event Note: [id number] dictated
[2020-08-05] MEDS ORDERED: Vancomycin 1 GM/200 ML BAG ONE (22:49)
--- NOTE | 2020-08-05 23:02 | HP ---
CHIEF COMPLAINT: Leg swelling. HISTORY OF PRESENT ILLNESS: Ms. Blake is an 85-year-old female, who recently had a pacemaker insertion for symptomatic bradycardia, hypertension, chronic back pain, was brought to the emergency room after her daughter noticed worsening leg swelling. The patient has some increase in shortness of breath as well. The patient also has been having cough as per family. The family denies any fevers, chills, nausea, vomiting, or diarrhea. The patient takes hydrochlorothiazide at home. Also, she is on amlodipine, atorvastatin, gabapentin, aspirin, valsartan, and hydroxyzine. Workup in the emergency room, D-dimer was elevated. CTA of the chest was ordered by ED physician. No pulmonary embolism. It does show bibasilar atelectasis versus developing infiltrate?? Also, it was reported that there is abnormal appearing mediastinal lymphadenopathy, cannot rule out malignancy. ED physician is consulting Oncology. The patient is being admitted to the hospital for further management. The patient received one dose of IV antibiotics. PAST MEDICAL HISTORY: As mentioned above in history of present illness. PAST SURGICAL HISTORY: 1. Pacemaker placement. 2. . 3. Neck procedure/surgery? SOCIAL HISTORY: No alcohol, drinking, or smoking history reported. FAMILY HISTORY: Reviewed and noncontributory. HOME MEDICATIONS: See home medication reconciliation form for updated medications. ALLERGIES: NO KNOWN ALLERGIES. REVIEW OF SYSTEMS: Review of 14 systems negative except what is mentioned in history of present illness. PHYSICAL EXAMINATION: GENERAL: The patient is awake, alert, does not appear to be in acute distress. VITAL SIGNS: Blood pressure 135/70; respiratory rate is 18; oxygen saturation is 94% on room air, it was reported it was earlier 90% as per ER physician; and temperature is 98. HEAD AND NECK: Normocephalic, atraumatic. Neck is supple. No JVD. CHEST: Fair bilateral air entry. HEART: S1, S2. Regular. ABDOMEN: Soft, nontender. Bowel sounds present. NEUROLOGIC: Awake, alert, moving extremities. PSYCH: Unable to assess. EXTREMITIES: No clubbing or cyanosis. LABORATORY DATA: Creatinine is 1.43, BUN is 18, and D-dimer elevated at 4.8. CTA of the chest as mentioned above in history of present illness. Venous Doppler of the lower extremities, no evidence of DVT in the left lower extremity. ASSESSMENT: 1. Shortness of breath, ?? atelectasis/pneumonia, the patient was given one dose of IV antibiotics in the ED. 2. Edema of lower extremities, venous Doppler of left lower extremity negative for deep venous thrombosis. 3. Recent pacemaker insertion for symptomatic bradycardia. 4. Hypertension. PLAN: 1. The patient will be admitted. 2. IV antibiotics were given in the ED, I will hold giving any further antibiotics since the patient does not look septic at this point, it could be atelectasis. We will get a procalcitonin level; if elevated, consider continuing antibiotics. Reassess in a.m. 3. Oncologist was consulted by ED physician regarding CT chest findings regarding mediastinal lymphadenopathy, ? malignancy for evaluation and further recommendations. 4. Oxygen to keep saturation more than 92%. 5. Reconcile home medications. 6. DVT prophylaxis as appropriate. 7. Expected length of stay, at least 1 midnight if the patient is stable and further workup negative. Job ID: [id number]
[2020-08-06 02:19] VITALS: BMI 32.3
[2020-08-06 06:04] LABS: #Eosinphils 0.2 thou/uL (0.0-0.7); #Lymphocytes 1.2 thou/uL (1.20-3.40); #Monocytes 0.5 thou/uL (0.11-0.59); #Neutrophils 3.2 thou/uL (1.40-6.50); %Basophils 0.3 % (0.0-1.0); %Lymphocytes 23.1 % (21.0-51.0); %Monocytes 10.1 % (0.0-10.0); %Neutrophils 62.5 % (42.0-75.0); Hemoglobin 12.3 g/dL (12.0-16.0); Mean Corpuscular HGB CONC 32.1 g/dL (32.0-36.0); Mean Corpuscular Hemoglobin 25.3 pg (27.0-31.0); Mean Corpuscular Volume 78.7 fL (78.0-98.0); Mean Platelet Volume 8.5 fL (7.4-10.4); Platelet Count 158 thou/uL (130-400); RBC Distribution Width 13.3 % (11.5-14.5); Red Blood Cell (RBC) Count 4.85 mill/uL (4.20-5.40); White Blood Cell (WBC) Count 5.2 thou/uL (4.8-10.8)
[2020-08-06 06:23] LABS: Anion Gap 14 mmol/L (10-20); BUN (Urea Nitrogen) 15 mg/dL (9.8-20.1); Calc. Creatinine Clearance 51 mL/min (70-130); Calcium 8.6 mg/dL (7.8-10.44); Carbon Dioxide 21 mmol/L (23-31); Chloride 106 mmol/L (98-107); Estimated GFR-MDRD 57; Glucose 100 mg/dL (83-110); Potassium 3.8 mmol/L (3.5-5.1); Sodium 137 mmol/L (136-145)
[2020-08-06] MEDS ORDERED: Enoxaparin Sodium 30 MG/0.3 ML SYRINGE SC SCH (09:00)
[2020-08-06 10:42] LABS: SARS-CoV-2 MS2 Positive; SARS-CoV-2 N Gene Negative; SARS-CoV-2 S Gene Negative; SARS-CoV-2 by NAA Not Detected (NotDetected); SARS-CoV-2 orf1ab Negative
[2020-08-06 16:42] VITALS: BP 130/74; TEMP 98.5
--- NOTE | 2020-08-07 15:00 | PDOC.DS.DS ---
Provider - Provider Date of Admission: 08/05/20 22:01 Admitting Provider: Kendall Monk MD Primary Care Physician: BENSON HINSON MD Course - Hospital Course Hospital Course: Ms. Blake is an 85 yo female who presented to the ED. She had a PPM placed by Dr. Mccurdy only a couple of days prior due to symptomatic bradycardia. She presented with CASTRO. Her initial workup was notable for a CT chest with no PE, but evidence of enlarged lymph nodes in the mediastinum that were impinging upon the trachea and bronchi. There were also some findings of atelectasis or developing infiltrates. She was afebrile, had no cough, chest pain or leukocytosis and this was felt to be related to atelectasis. BNP and Troponin was normal. Procalcitonin was normal. She felt normal at rest, but was dyspneic on exertion. She desaturated with brief ambulation. I discussed the case with her and her daughter. I explained the pathological appearance of the DIEGO and potential causes, including lymphoma, other cancer or less likely, sarcoidosis. To diagnosis this, she would likely need a bronchoscopic biopsy. They were not interested in pursuing the biopsy given her age. They would not want to pursue steroids for sarcoidosis or treatment for cancer. They preferred to get discharged with home oxygen. This was arranged. I asked that they follow up with her PCP to discuss this further. She can certainly have additional workup done as an outpatient. They understand, that if left untreated this will likely progress. Her daughter also wanted some of her medications discontinued because she did not think she would need so many after getting the PPM. However, she was not on any chronotropic meds. She also had a slight decrease in her GFR from her baseline of CKD III. This improved by the following day back to baseline. - Labs Lab Results: 08/06/20 05:53 08/06/20 05:53 Abnormal Lab Results - Last 48 hrs 08/05/20 17:35: D-Dimer 4.85 H 08/05/20 17:35: MCH 25.3 L, Monocytes % 11.3 H, Monocytes # 0.8 H 08/05/20 17:35: Sodium 135 L, Creatinine 1.43 H, Globulin 4.0 H, Albumin/Globulin Ratio 1.0 L 08/06/20 05:53: Carbon Dioxide 21 L, Creatinine 1.11 H 08/06/20 05:53: MCH 25.3 L, Monocytes % 10.1 H Microbiology - Entire Visit 08/05/20 21:43 Venous blood - Left Arm Blood Culture - Preliminary Specimen has been received and culture in progress. No Growth to date. 08/05/20 22:06 Venous blood - Right Hand Blood Culture - Preliminary Specimen has been received and culture in progress. No Growth to date. - Physical Exam Vitals: Weight Weight 188 lb 11.2 oz Physical Exam: The patient was seen and examined on the day of discharge. PPM site appeared very healthy. Lungs were clear on exam. Heart was regular. Problem - Problem (1) Mediastinal lymphadenopathy Code(s): R59.0 - LOCALIZED ENLARGED LYMPH NODES Status: Acute (2) Acute respiratory failure with hypoxia Code(s): J96.01 - ACUTE RESPIRATORY FAILURE WITH HYPOXIA Status: Acute (3) Hypertension Code(s): I10 - ESSENTIAL (PRIMARY) HYPERTENSION Status: Chronic (4) CKD (chronic kidney disease), stage III Code(s): N18.30 - CHRONIC KIDNEY DISEASE, STAGE 3 UNSPECIFIED Status: Acute (5) Cardiac pacemaker in situ Code(s): Z95.0 - PRESENCE OF CARDIAC PACEMAKER Status: Acute (6) LUCIA (acute kidney injury) Code(s): N17.9 - ACUTE KIDNEY FAILURE, UNSPECIFIED Status: Acute Plan - Discharge Medications Home Medications: Medication Instructions Recorded Confirmed Type Gabapentin [Neurontin] 300 mg PO BID 07/30/20 08/06/20 History Hydrochlorothiazide 25 mg PO DAILY 07/30/20 08/06/20 History Valsartan 320 mg PO DAILY 07/30/20 08/06/20 History cloNIDine [Catapres] 0.1 mg PO BID 07/30/20 08/06/20 History hydrOXYzine Pamoate [Vistaril] 25 mg PO HS PRN 07/30/20 08/06/20 History Amlodipine [Norvasc] 10 mg PO DAILY #30 tab 08/01/20 08/06/20 Rx Aspirin [Ecotrin Low Strength] 81 mg PO DAILY #30 tab 08/01/20 08/06/20 Rx Atorvastatin Calcium [Lipitor] 40 mg PO HS #30 tab 08/01/20 08/06/20 Rx Butalb/Acetaminophen/Caffeine 1 cap PO Q4H PRN 08/06/20 08/06/20 History [Butalb/Acetamin/Caff 50-300-40] Allergies: No Known Drug Allergies Allergy (Verified 08/06/20 01:13) - Discharge Instructions Discharge Instructions:: No new medicines-continue current medicines. Activity:: Activity as Tolerated Nourishment:: Heart Healthy Diet Equipment/Supplies:: Oxygen - Follow up Plan Referrals: BENSON HINSON MD [Primary Care Provider] - Disposition: HOME Quality - Care Measures CORE MEASURES:: N/A
== END 2020-08-06 17:55 | disposition home or self-care (01) ==
LOC: ERS 17:03 → 2SW 22:01
PROVIDERS: ADMIT Internal Medicine; ATTEND Internal Medicine
DX: R59.0 Localized enlarged lymph nodes (principal); J98.11 Atelectasis; J96.01 Acute respiratory failure with hypoxia; M79.89 Other specified soft tissue disorders; I12.9 Hypertensive chronic kidney disease with stage 1 through stage 4 chronic kidney disease, or unspecified chronic kidney disease; N18.30 Chronic kidney disease, stage 3 unspecified; N17.9 Acute kidney failure, unspecified; I51.7 Cardiomegaly; G89.29 Other chronic pain; M54.9 Dorsalgia, unspecified; Z79.899 Other long term (current) drug therapy; Z95.0 Presence of cardiac pacemaker; Z20.828 Contact with and (suspected) exposure to other viral communicable diseases
CPT/HCPCS: 71045; 71275; 80048; 80053; 81003; 82164; 82550; 83735; 83880; 84145; 84484; 85025 ×2; 85379; 87040; 93005; 93971; 96365; 96367; 96372; 99285; G0378 ×3; U0003; 36415; 87635; J0692; J1650; J3370; J3475; Q9967

== ENCOUNTER 2020-11-09 18:20 | Observation (INO) | payer MEDICARE ==
[2020-11-09 19:14] LABS: #Basophils 0.1 thou/uL (0.0-0.2); #Eosinphils 0.1 thou/uL (0.0-0.7); #Lymphocytes 1.8 thou/uL (1.20-3.40); #Monocytes 0.8 thou/uL (0.11-0.59); #Neutrophils 7.2 thou/uL (1.40-6.50); %Basophils 0.6 % (0.0-1.0); %Eosinophils 1.4 % (0.0-10.0); %Lymphocytes 17.9 % (21.0-51.0); %Monocytes 7.9 % (0.0-10.0); %Neutrophils 72.2 % (42.0-75.0); Hemoglobin 12.7 g/dL (12.0-16.0); Mean Corpuscular HGB CONC 30.8 g/dL (32.0-36.0); Mean Corpuscular Hemoglobin 24.3 pg (27.0-31.0); Mean Corpuscular Volume 78.9 fL (78.0-98.0); Mean Platelet Volume 8.2 fL (7.4-10.4); Platelet Count 209 thou/uL (130-400); RBC Distribution Width 14.1 % (11.5-14.5); Red Blood Cell (RBC) Count 5.23 mill/uL (4.20-5.40)
[2020-11-09 19:35] LABS: ALT (SGPT) 22 U/L (8-55); AST (SGOT) 40 U/L (5-34); Albumin 3.9 g/dL (3.4-4.8); Alkaline Phosphatase 93 U/L (40-110); Anion Gap 14 mmol/L (10-20); BUN (Urea Nitrogen) 21 mg/dL (9.8-20.1); Bilirubin, Total 0.6 mg/dL (0.2-1.2); CK (CPK) 109 U/L (29-168); Calc. Creatinine Clearance 0 mL/min (70-130); Carbon Dioxide 26 mmol/L (23-31); Chloride 103 mmol/L (98-107); Globulin 4.3 g/dL (2.4-3.5); Glucose 125 mg/dL (83-110); Lipase 11 U/L (8-78); Potassium 4.3 mmol/L (3.5-5.1); Protein, Total 8.2 g/dL (5.8-8.1); Sodium 139 mmol/L (136-145)
--- NOTE | 2020-11-09 19:39 | RAD ---
EXAM: Single view of the chest HISTORY: Chest pain COMPARISON: 08/05/2020 FINDINGS: Single view of the chest shows an enlarged cardiomediastinal silhouette. The pacemaker is unchanged in position. There is no evidence of consolidation, mass, or pleural effusion. Degenerative changes are seen in the spine. IMPRESSION: Cardiomegaly
--- NOTE | 2020-11-09 21:37 | CT ---
EXAM: CTA of the chest HISTORY: Chest pain and elevated d-dimer. Dyspnea COMPARISON: 08/05/2020 TECHNIQUE: Multiple contiguous axial images were obtained a CTA of the chest with contrast per pulmon harriet embolism protocol. 3-D oblique MIP reformats and direct coronal reformats were performed. FINDINGS: HEART: There is a moderate pericardial effusion. A pacemaker is seen with its leads in the right atri um and ventricle. PULMONARY ARTERIES: Normal in caliber without filling defects to suggest pulmonary emboli. MEDIASTINUM: There are stable enlarged mediastinal lymph nodes measuring up to 1.7 cm in size. Bilate ral hilar enlarged lymph nodes are also seen. Soft tissue density is again seen surrounding the mainstem bronchi and segmental branches of the bronchi. There may be narrowing of the bronchioles to the lower lobes secondary to the soft tissue density in the hilar regions. LUNGS: Atelectasis is seen in the lung bases. Interstitial lung disease is seen in the lung bases, un changed. No focal infiltrates or masses. PLEURAL SPACE: No pleural effusion or pneumothorax. CHEST WALL SOFT TISSUES: Unremarkable VISUALIZED OSSEOUS STRUCTURES: No acute abnormality. VISUALIZED SUBDIAPHRAGMATIC STRUCTURES: Unremarkable IMPRESSION: 1. No evidence of pulmonary thromboembolism 2. Stable pericardial effusion 3. There is a soft tissue inflammatory process surrounding the bronchi with likely reactive adenopath y. This could be secondary to an infection or inflammatory process.
[2020-11-09 22:59] LABS: SARS-CoV-2 NAA Rapid Test Not Detected (NotDetected)
[2020-11-09 23:04] LABS: Troponin I Less than 0.010 ng/mL (< 0.028)
[2020-11-10] MEDS ORDERED: Ondansetron PF 4 MG/2 ML Vial IVP PRN ×2 (01:30→02:57)
[2020-11-10] MEDS ORDERED: Acetaminophen 325 MG TAB PO PRN ×2 (01:30→02:57)
[2020-11-10] MEDS ORDERED: Ondansetron ODT 4 MG TAB SL PRN (01:30)
[2020-11-10 02:16] VITALS: BMI 30.4
[2020-11-10 02:20] LABS: Troponin I Less than 0.010 ng/mL (< 0.028)
[2020-11-10] MEDS ORDERED: Labetalol HCl 100 MG/20 ML VIAL SLOW IVP PRN ×2 (02:57→06:40)
[2020-11-10] MEDS ORDERED: cloNIDine 0.1 MG TAB PO PRN (02:57)
[2020-11-10] MEDS ORDERED: hydrALAZINE 20 MG/ML VIAL SLOW IVP PRN ×2 (02:57→06:40)
[2020-11-10] MEDS ORDERED: HYDROcodone/Acetaminophen 5/325 mg Tablet PO PRN (02:57)
[2020-11-10] MEDS ORDERED: Morphine 2 MG/ML VIAL SLOW IVP PRN (02:57)
[2020-11-10] MEDS ORDERED: Promethazine HCl 12.5 MG in Sodium Chloride 0.9% 50 ML IVPB PRN ×2 (02:57→06:40)
[2020-11-10] MEDS ORDERED: Guaifenesin DM 100-10/5 ML UDCUP PO PRN (02:57)
[2020-11-10] MEDS ORDERED: Fioricet 325/50/40 mg Tablet PO PRN (02:58)
[2020-11-10] MEDS ORDERED: hydrOXYzine Pamoate 25 mg Capsule PO PRN (02:58)
[2020-11-10] MEDS ORDERED: Electrolyte Replacement Protocol 1 EACH FS SCH (03:00)
--- NOTE | 2020-11-10 03:02 | PDOC.HHP ---
Hospitalist HPI Shortness of breath History of Present Illness: The patient is an 85-year-old female with a past medical history significant for hypertension, GERD and chronic back pain that presents to the emergency department for shortness of breath and dizzy episode lasting one hour as well as chest discomfort, dyspnea, dizziness, n/v while walking up a ramp earlier. pt felt bad for 1-2 hrs afterwards and then her symptoms improved. she denies any active chest discomfort. no fevers. denies other covid symptoms and has been t ested but it was a while back. no loc. pt reports she was feeling well earlier in the day and in a good state of health. she denies any fevers or chills. pt had a hx of pacemaker placed in Jul for bradycardia..pt with resolved symptoms in ed. ekg non-specific. trop neg. CT PE study neg for PE, possible infectious findings, covid pending. no fever or cough, patient to be admitted for workup of above Allergies/Adverse Reactions: Allergy/AdvReac Type Severity Reaction Status Date / Time Iodinated Contrast Media Allergy Verified 11/10/20 02:34 Home Medications: Medication Instructions Recorded Confirmed Type Gabapentin [Neurontin] 300 mg PO BID 07/30/20 11/10/20 History Hydrochlorothiazide 25 mg PO DAILY 07/30/20 11/10/20 History Valsartan 320 mg PO DAILY 07/30/20 11/10/20 History cloNIDine [Catapres] 0.1 mg PO BID 07/30/20 11/10/20 History hydrOXYzine Pamoate [Vistaril] 25 mg PO HS PRN 07/30/20 11/10/20 History Amlodipine [Norvasc] 10 mg PO DAILY #30 tab 08/01/20 11/10/20 Rx Aspirin [Ecotrin Low Strength] 81 mg PO DAILY #30 tab 08/01/20 11/10/20 Rx Atorvastatin Calcium [Lipitor] 40 mg PO HS #30 tab 08/01/20 11/10/20 Rx Butalb/Acetaminophen/Caffeine 1 cap PO Q4H PRN 08/06/20 11/10/20 History [Butalb/Acetamin/Caff 50-300-40] Past History: PMHx: Source: patient, RN notes reviewed Cardiac: reports: HTN Gastrointestinal: reports: GERD Musculoskeletal: reports: Other (Chronic back pain) PSHx: Past Surgical History: reports: , Other (Cervical surgery ()) FHx: Family History: reports: cardiac disorder (Both sons had myocardial infarction). denies: cerebrovascular accident Social: Smoking Status: Never smoker Alcohol: reports: None Drugs: reports: none Living Situation: With Family Occupation: Retired Activity level: independent ambulation Hospitalist HPI ROS Constitutional: denies: fever, chills, sweats, weakness, malaise, other Eyes: denies: pain, vision change, conjunctivae inflammation, eyelid inflammatio n, redness, other ENT: denies: ear pain, ear discharge, nose pain, nose discharge, nose congestion, mouth pain, mouth swelling, throat pain, throat swelling, other Respiratory: reports: shortness of breath. denies: cough, dry, hemoptysis, SOB with excertion, pleuritic pain, sputum, wheezing, other Cardiovascular: denies: chest pain, palpitations, orthopnea, paroxysmal noc. dyspnea, edema, light headedness, other Gastrointestinal: denies: nausea, vomiting, abdominal pain, diarrhea, constipation, melena, hematochezia, other Genitourinary: denies: dysuria, frequency, incontinence, hematuria, retention, other Musculoskeletal: denies: neck pain, shoulder pain, arm pain, back pain, hand pain, leg pain, foot pain, other Skin: denies: rash, lesions, carter, bruising, other Neurological: denies: weakness, numbness, incoordination, change in speech, confusion, seizures, other All other systems reviewed; all pertinent +/- noted in HPI/Subj Hospitalist Exam Vitals: Vital Signs (12 hours) Temp Pulse Resp BP Pulse Ox 11/10/20 01:16 98.1 F 95 20 160/94 H 99 Weight Weight 183 lb 1.6 oz General Appearance: NAD, awake alert Eye: PERRL, anicteric sclera ENT: normocephalic atraumatic, no oropharyngeal lesions, moist mucosa Neck: supple, symmetric, no JVD, no thyromegaly, no lymphadenopathy, no carotid bruit Heart: RRR, no murmur, no gallops, no rubs, normal peripheral pulses Respiratory: CTAB, no wheezes, no rales, no ronchi, normal chest expansion, no tachypnea, normal percussion Gastrointestinal: soft, non-tender, non-distended, normal bowel sounds, no palpable masses, no hepatomegaly, no splenomegaly, no bruit Extremities: no cyanosis, no clubbing, no edema Skin: normal turgor, no lesions, no rashes Neurological: cranial nerve grossly intact, normal sensation to touch, no weakness, no focal deficits, no new deficit Musculoskeletal: normal tone, normal strength, no muscle wasting Psychiatric: normal affect, normal behavior, A&O x 3 Hospitalist Results Result Diagrams: 11/10/20 04:15 11/10/20 04:15 Lab results: Laboratory Last Values WBC 10.0 thou/uL (4.8-10.8) 11/09/20 19:03 RBC 5.23 mill/uL (4.20-5.40) 11/09/20 19:03 Hgb 12.7 g/dL (12.0-16.0) 11/09/20 19:03 Hct 41.3 % (36.0-47.0) 11/09/20 19:03 MCV 78.9 fL (78.0-98.0) 11/09/20 19:03 MCH 24.3 pg (27.0-31.0) L 11/09/20 19:03 MCHC 30.8 g/dL (32.0-36.0) L 11/09/20 19:03 RDW 14.1 % (11.5-14.5) 11/09/20 19:03 Plt Count 209 thou/uL (130-400) 11/09/20 19:03 MPV 8.2 fL (7.4-10.4) 11/09/20 19:03 Neutrophils % 72.2 % (42.0-75.0) 11/09/20 19:03 Lymphocytes % 17.9 % (21.0-51.0) L 11/09/20 19:03 Monocytes % 7.9 % (0.0-10.0) 11/09/20 19:03 Eosinophils % 1.4 % (0.0-10.0) 11/09/20 19:03 Basophils % 0.6 % (0.0-1.0) 11/09/20 19:03 Neutrophils # 7.2 thou/uL (1.40-6.50) H 11/09/20 19:03 Lymphocytes # 1.8 thou/uL (1.20-3.40) 11/09/20 19:03 Monocytes # 0.8 thou/uL (0.11-0.59) H 11/09/20 19:03 Eosinophils # 0.1 thou/uL (0.0-0.7) 11/09/20 19:03 Basophils # 0.1 thou/uL (0.0-0.2) 11/09/20 19:03 D-Dimer 2.81 *mcg/mL (0.27-0.43) H 11/09/20 19:03 Sodium 139 mmol/L (136-145) 11/09/20 19:03 Potassium 4.3 mmol/L (3.5-5.1) 11/09/20 19:03 Chloride 103 mmol/L (98-107) 11/09/20 19:03 Carbon Dioxide 26 mmol/L (23-31) 11/09/20 19:03 Anion Gap 14 mmol/L (10-20) 11/09/20 19:03 BUN 21 mg/dL (9.8-20.1) H 11/09/20 19:03 Creatinine 1.42 mg/dL (0.6-1.1) H 11/09/20 19:03 Estimated GFR (MDRD) 43 11/09/20 19:03 Glucose 125 mg/dL (83-110) H 11/09/20 19:03 Calcium 9.0 mg/dL (7.8-10.44) 11/09/20 19:03 Total Bilirubin 0.6 mg/dL (0.2-1.2) 11/09/20 19:03 AST 40 U/L (5-34) H 11/09/20 19:03 ALT 22 U/L (8-55) 11/09/20 19:03 Alkaline Phosphatase 93 U/L (40-110) 11/09/20 19:03 Creatine Kinase 109 U/L (29-168) 11/09/20 19:03 Troponin I Less than 0.010 ng/mL (< 0.028) 11/10/20 01:25 Serum Total Protein 8.2 g/dL (5.8-8.1) H 11/09/20 19:03 Albumin 3.9 g/dL (3.4-4.8) 11/09/20 19:03 Globulin 4.3 g/dL (2.4-3.5) H 11/09/20 19:03 Albumin/Globulin Ratio 0.9 g/dL (1.2-2.2) L 11/09/20 19:03 Lipase 11 U/L (8-78) 11/09/20 19:03 Influenza A RNA INAAT Not Detected (NotDetected) 11/09/20 22:14 Influenza B RNA INAAT Not Detected (NotDetected) 11/09/20 22:14 SARS-CoV-2 Rap RNA(RT-PCR) Not Detected (NotDetected) 11/09/20 22:14 Additional comment: labs, imaging, ed notes reviewed Hospitalist H&P A/P Plan: Patient is an 85 year old female with PMH HTN, GERD, chronic back pain who presents to ED for dizziness, shortness of breath. #Near syncope - has had previous workup for this, now with repeat episodes and abnormal lung imaging, will look into this - consult pulmonary for help with nebs etc that may prevent further hospitalizations and episodes of near syncope -NOTE: patient continues to not want invasive workup of lymphadenopathy, mostly want symptom control suggestions based on patient goals of care, appreciate pulmonary expertise # abnormal lung imaging - inflammation changes on CTA chest, previously Dr Dobbins discussed biopsy for ruling out cancer and perhaps diagnosing a lung condition such as sarcoidosis, he had conversation about goals of care and patient not interested in invasive diagnostic methods. today patient continues to feel like that BUT is OK with pulmonary speaking to her this admission - consult pulmonary - start duonebs, dulera - IV solumedrol for inflammation on imaging around bronchus - will also start antibiotics pending pulmonary input - consider cardiology consult in morning #Hypertension - PRN meds, resume home meds #GERD - Pepcid #Chronic back pain - did not complain of this to me, monitor # history of pacemaker - monitor on telemetry, has had cardiac workup in past, consult
[2020-11-10 04:35] LABS: #Eosinphils 0.1 thou/uL (0.0-0.7); #Monocytes 0.7 thou/uL (0.11-0.59); #Neutrophils 4.1 thou/uL (1.40-6.50); %Basophils 0.3 % (0.0-1.0); %Eosinophils 1.3 % (0.0-10.0); %Lymphocytes 28.9 % (21.0-51.0); %Monocytes 10.5 % (0.0-10.0); %Neutrophils 58.9 % (42.0-75.0); Hemoglobin 11.2 g/dL (12.0-16.0); Mean Corpuscular HGB CONC 31.6 g/dL (32.0-36.0); Mean Corpuscular Hemoglobin 24.7 pg (27.0-31.0); Mean Corpuscular Volume 78.2 fL (78.0-98.0); Mean Platelet Volume 8.4 fL (7.4-10.4); Platelet Count 207 thou/uL (130-400); Red Blood Cell (RBC) Count 4.52 mill/uL (4.20-5.40); White Blood Cell (WBC) Count 6.9 thou/uL (4.8-10.8)
[2020-11-10 05:00] LABS: Anion Gap 16 mmol/L (10-20); BUN (Urea Nitrogen) 22 mg/dL (9.8-20.1); Calc. Creatinine Clearance 46 mL/min (70-130); Calcium 8.8 mg/dL (7.8-10.44); Carbon Dioxide 21 mmol/L (23-31); Chloride 104 mmol/L (98-107); Glucose 109 mg/dL (83-110); Potassium 4.5 mmol/L (3.5-5.1); Sodium 136 mmol/L (136-145)
[2020-11-10] MEDS ORDERED: Nitroglycerin 0.4 MG TAB (25 Tab Bottle) SL PRN (07:29)
[2020-11-10] MEDS ORDERED: Azithromycin 500 MG in Sodium Chloride 0.9% 250 ML 250 ML IVPB SCH (08:00)
[2020-11-10] MEDS ORDERED: Famotidine 20 MG TAB PO SCH (09:00)
[2020-11-10] MEDS: Amlodipine 10 MG TAB PO SCH (09:00)
[2020-11-10] MEDS: Gabapentin 300 MG CAP PO SCH ×2 (09:00→20:36)
[2020-11-10] MEDS: cloNIDine 0.1 MG TAB PO SCH ×2 (09:00→20:36)
[2020-11-10] MEDS: Valsartan 80 MG TAB PO SCH (09:00)
[2020-11-10] MEDS: Aspirin 81 mg Enteric Coated Tablet PO SCH (09:01)
[2020-11-10] MEDS: Polyethylene Glycol 3350 17 GM Packet PO SCH (09:01)
[2020-11-10] MEDS: methylPREDNISolone Sod Succ/PF 125 MG/2 ML VIAL IVP SCH ×2 (09:01→16:36)
[2020-11-10] MEDS: Hydrochlorothiazide 25 MG TAB PO SCH (09:01)
--- NOTE | 2020-11-10 14:38 | CON ---
DATE OF CONSULTATION: 11/10/2020 REASON FOR CONSULTATION: Lightheadedness. PRIMARY HOSPITAL SCIENTIST: Janna Mccurdy MD. HISTORY OF PRESENT ILLNESS: Ms. Blake is a very pleasant 85-year-old female, who comes to the hospital for shortness of breath and dizziness. She had mild chest discomfort, dyspnea, some dizziness that brought her into the hospital. She noticed this was for about 2 hours, after that her symptoms got better and eventually they came back, so she decided to come in for evaluation. She came in and had a CT of the chest that showed possible infectious findings with inflammation around her bronchial tree, so she was admitted, placed on antibiotics, and Cardiology has been consulted for her chest pain issues. She has a pacemaker for symptomatic bradycardia placed by Dr. Mccurdy in July of last year. PAST MEDICAL HISTORY: 1. Hypertension. 2. GERD. 3. Chronic back pain. 4. Symptomatic bradycardia, status post pacemaker placement. SURGICAL HISTORY: 1. . 2. Pacemaker placement in July of last year. OUTPATIENT MEDICATIONS: 1. Gabapentin 300 mg b.i.d. 2. Hydrochlorothiazide 25 mg a day. 3. Valsartan 20 mg a day. 4. Clonidine 0.1 p.o. b.i.d. 5. Hydroxyzine 25 mg p.r.n. 6. Amlodipine 10 mg a day. 7. Aspirin 81 a day. 8. Atorvastatin 40 mg at bedtime. 9. Cljzammcip-pjnhuwvzqwycm-fkipwkol p.r.n. ALLERGIES: IODINE. FAMILY HISTORY: Heart attacks in 2 children. SOCIAL HISTORY: No alcohol, tobacco, or drugs. REVIEW OF SYSTEMS: A 12-point review of systems was done and was found to be negative other than stated in the history of present illness. PHYSICAL EXAMINATION: VITAL SIGNS: Temperature 97.9; pulse 82; respiratory rate 20; saturating 96% on room air; blood pressure 119/59 standing, 130/63 sitting, so she dropped about 11 points. GENERAL: Awake, alert, oriented x3, in no distress. HEENT: Normocephalic and atraumatic. NECK: Supple. LUNGS: Clear. CARDIOVASCULAR: S1 and S2. No S3 or S4. No murmurs or rubs. ABDOMEN: Soft. Positive bowel sounds. EXTREMITIES: No edema. SKIN: Warm and dry. LABORATORY DATA: Laboratory work was reviewed. White count of 10, hemoglobin of 12, hematocrit 41, platelet count 209. Coags, D-dimer was high. Chemistry with a creatinine of 1.4 on admission, down to 1.2. Troponins were all negative x3. BNP was 50. GFR was 43, now up to 52 with a creatinine went from 1.4 to 1.2. Albumin of 3.9. COVID-19 PCR serology was negative. Influenza A and B were both not detected. IMAGING STUDIES: CT of the chest was reviewed, which showed no pulmonary embolism. There is a small pericardial effusion. Inflammatory process surrounding the bronchi thought to be reactive adenopathy. Echocardiogram was reviewed. EF at 60% to 65% with grade 1 diastolic dysfunction. There is a moderate-sized pericardial effusion. RVSP was only 36 mmHg. ASSESSMENT AND PLAN: 1. Shortness of breath. 2. Chest pain. 3. Possible infectious etiology in her bronchial tree. 4. Status post pacemaker placement. PLAN: 1. LV function is normal and just has diastolic dysfunction. However, her blood pressure has not really been that high. 2. We will get an interrogation of her pacemaker to make sure that she is not having any tachyarrhythmias. 3. We will continue to monitor closely. If her blood pressure starts to drop, we may consider tamponade physiology, but I do not think that is the case at this time. 4. Continue antibiotics per Primary Team for possible infectious process. Thank you for letting us to participate in the care of your patient. We will follow. Job ID: [id number]
[2020-11-10] MEDS: Mometasone 100 MCG/Formoterol 5 MCG 120 PUFF INHALER INH SCH (19:19)
[2020-11-10] MEDS: Cefdinir 300 MG CAP PO SCH (20:36)
[2020-11-10] MEDS ORDERED: Enoxaparin Sodium 40 MG/0.4 ML SYRINGE SC SCH ×2 (21:00)
[2020-11-10] MEDS ORDERED: Atorvastatin Calcium 40 MG TAB PO SCH (21:00)
[2020-11-11 05:05] LABS: #Lymphocytes 1.4 thou/uL (1.20-3.40); #Monocytes 0.1 thou/uL (0.11-0.59); #Neutrophils 7.1 thou/uL (1.40-6.50); %Eosinophils 0.3 % (0.0-10.0); %Lymphocytes 16.5 % (21.0-51.0); %Monocytes 1.4 % (0.0-10.0); %Neutrophils 81.8 % (42.0-75.0); Hemoglobin 10.6 g/dL (12.0-16.0); Mean Corpuscular HGB CONC 30.8 g/dL (32.0-36.0); Mean Corpuscular Hemoglobin 24.1 pg (27.0-31.0); Mean Platelet Volume 8.5 fL (7.4-10.4); Platelet Count 167 thou/uL (130-400); Red Blood Cell (RBC) Count 4.38 mill/uL (4.20-5.40); White Blood Cell (WBC) Count 8.6 thou/uL (4.8-10.8)
[2020-11-11 05:24] LABS: Anion Gap 15 mmol/L (10-20); BUN (Urea Nitrogen) 24 mg/dL (9.8-20.1); Calc. Creatinine Clearance 49 mL/min (70-130); Calcium 8.5 mg/dL (7.8-10.44); Carbon Dioxide 22 mmol/L (23-31); Chloride 103 mmol/L (98-107); Glucose 148 mg/dL (83-110); Magnesium 2.3 mg/dL (1.6-2.6); Potassium 4.1 mmol/L (3.5-5.1); Sodium 136 mmol/L (136-145)
[2020-11-11] MEDS ORDERED: predniSONE 20 MG TAB PO SCH (08:00)
[2020-11-11] MEDS: Mometasone 100 MCG/Formoterol 5 MCG 120 PUFF INHALER INH SCH (08:01)
[2020-11-11] MEDS: Valsartan 80 MG TAB PO SCH (08:53)
[2020-11-11] MEDS: Cefdinir 300 MG CAP PO SCH (08:53)
[2020-11-11] MEDS: Hydrochlorothiazide 25 MG TAB PO SCH (08:53)
[2020-11-11] MEDS: Gabapentin 300 MG CAP PO SCH (08:54)
[2020-11-11] MEDS: cloNIDine 0.1 MG TAB PO SCH (08:54)
[2020-11-11] MEDS: Aspirin 81 mg Enteric Coated Tablet PO SCH (08:54)
[2020-11-11] MEDS: Amlodipine 10 MG TAB PO SCH (08:54)
[2020-11-11] MEDS: Polyethylene Glycol 3350 17 GM Packet PO SCH (08:55)
[2020-11-11] MEDS ORDERED: Azithromycin 250 MG TAB PO SCH (09:00)
[2020-11-11 12:32] VITALS: BP 114/63; TEMP 98.2
--- NOTE | 2020-11-11 17:57 | PDOC.DS.DS ---
Provider Date of Admission: 11/09/20 22:17 Date of Discharge: 11/11/20 Admitting Provider: Alfredo Cabello MD Consultations: Cardiology Primary Care Physician: BENSON HINSON MD Course Hospital Course: Patient is a 85-year-old female with hypertension and sick sinus syndrome status post pacemaker last year presented to the emergency room on 11/09 with shortness of breath along with lightheadedness. Please refer to the history and physical for further details. The patient was admitted to the hospital with a diagnosis of shortness of breath. CT angiogram of the chest was negative for pulmonary embolism. It showed stable pericardial effusion with soft tissue inflammatory process surrounding the bronchi with likely reactive adenopathy which could be from infection or inflammation. Patient was monitored on telemetry. Troponins remain negative. BNP was normal. Patient was evaluated by cardiology Dr. Fair. She was also started on broad-spectrum antibiotics for possible pneumonia. Patient has remained afebrile during this hospital stay. Her WBC counts were also normal without left shift on admission. She was started on IV steroids on admission that has been transitioned to oral prednisone at discharge. She also had mild acute kidney injury for which valsartan dose has been reduced to 80 mg daily from 320 mg daily per cardiology recommendation. Patient also had echocardiogram that showed ejection fraction 60 to 65% with grade 1 of 3 diastolic dysfunction, mild concentric left ventricular hypertrophy, mild mitral regurgitation, moderate tricuspid regurgitation and moderate sized pericardial effusion without tamponade. She will benefit from repeat labs after 1 to 2 weeks. Albuterol inhaler was also started at discharge. She was advised to follow-up with pulmonary as outpatient for further work-up on lymphadenopathy. I discussed the plan of care including echo with cardiology Dr. Fair who recommended outpatient follow-up for pericardial effusion. Final diagnosis: Shortness of breathmultifactorial Acute bronchitis/suspected pneumonia? Gram-negative LUCIA on CKD stage III Sick sinus syndrome s/p pacemaker Hypertension GERD Chronic anemia suspected due to nutritional deficiency Obesity with a BMI 31.3 Pericardial effusionmoderate Iodine allergy Resuscitation Status: 11/10/20 02:56 Resuscitation Status Routine Resuscitation Status: FULL: Full Resuscitation Lab Results: 11/11/20 04:19 11/11/20 04:19 Abnormal Lab Results - Last 48 hrs 11/09/20 19:03: MCH 24.3 L, MCHC 30.8 L, Lymphocytes % 17.9 L, Neutrophils # 7.2 H, Monocytes # 0.8 H 11/09/20 19:03: BUN 21 H, Creatinine 1.42 H, AST 40 H, Serum Total Protein 8.2 H, Globulin 4.3 H, Albumin/Globulin Ratio 0.9 L 11/09/20 19:03: D-Dimer 2.81 H 11/10/20 04:15: Carbon Dioxide 21 L, BUN 22 H, Creatinine 1.20 H 11/10/20 04:15: Hgb 11.2 L, Hct 35.3 L, MCH 24.7 L, MCHC 31.6 L, Monocytes % 10.5 H, Monocytes # 0.7 H 11/11/20 04:19: Carbon Dioxide 22 L, BUN 24 H, Creatinine 1.16 H 11/11/20 04:19: Hgb 10.6 L, Hct 34.2 L, MCH 24.1 L, MCHC 30.8 L, Neutrophils % 81.8 H, Lymphocytes % 16.5 L, Neutrophils # 7.1 H, Monocytes # 0.1 L Vitals: Vital Signs (12 hours) Temp Pulse Resp BP BP Pulse Ox 11/11/20 12:00 98.2 F 80 17 114/63 97 11/11/20 08:54 80 123/75 11/11/20 08:00 80 20 11/11/20 07:24 97.5 F L 76 15 113/54 L 96 Weight Admit Weight 183 lb 1.6 oz Weight 188 lb 4.8 oz Physical Exam: The patient was seen and examined on the day of discharge. General Appearance: awake alert Neck: supple, no JVD Respiratory: no wheezes Cardiovascular: RRR Gastrointestinal: normal bowel sounds Extremities: no cyanosis PSYCH: A&O x 3 Plan Prescriptions: Valsartan [Diovan] 80 mg PO DAILY #30 tab Doxycycline Hyclate 100 mg PO BID #10 capsule guaiFENesin [Mucinex] 600 mg PO BID #20 tab.er.12h Cefdinir [Omnicef] 300 mg PO BID #10 cap predniSONE 20 mg PO ASDIR #9 tab Pantoprazole [Protonix] 40 mg PO DAILY #30 tab Albuterol Sulfate HFA (OR) [Proventil Hfa (or)] 2 puff INH Q4H #1 inh Home Medications: Medication Instructions Recorded Confirmed Type Gabapentin [Neurontin] 300 mg PO BID 07/30/20 11/10/20 History Hydrochlorothiazide 25 mg PO DAILY 07/30/20 11/10/20 History cloNIDine [Catapres] 0.1 mg PO BID 07/30/20 11/10/20 History hydrOXYzine Pamoate [Vistaril] 25 mg PO HS PRN 07/30/20 11/10/20 History Amlodipine [Norvasc] 10 mg PO DAILY #30 tab 08/01/20 11/10/20 Rx Aspirin [Ecotrin Low Strength] 81 mg PO DAILY #30 tab 08/01/20 11/10/20 Rx Atorvastatin Calcium [Lipitor] 40 mg PO HS #30 tab 08/01/20 11/10/20 Rx Butalb/Acetaminophen/Caffeine 1 cap PO Q4H PRN 08/06/20 11/10/20 History [Butalb/Acetamin/Caff 50-300-40] Albuterol Sulfate HFA (OR) 2 puff INH Q4H #1 inh 11/11/20 Rx [Proventil Hfa (or)] Cefdinir [Omnicef] 300 mg PO BID #10 cap 11/11/20 Rx Doxycycline Hyclate 100 mg PO BID #10 capsule 11/11/20 Rx Pantoprazole [Protonix] 40 mg PO DAILY #30 tab 11/11/20 Rx Valsartan [Diovan] 80 mg PO DAILY #30 tab 11/11/20 Rx guaiFENesin [Mucinex] 600 mg PO BID #20 tab.er.12h 11/11/20 Rx predniSONE 20 mg PO ASDIR #9 tab 11/11/20 Rx Allergies: Iodinated Contrast Media Allergy (Verified 11/10/20 02:34) Discharge Instructions:: Repeat CXR after 4 weeks - PCP to arrange/follow BMP after 2 weeks - PCP to arrange/follow Reduce Valsartan to 80 mg daily Referrals: Lurdes Mccurdy MD [Active] - 7 Days (Please call to schedule a follow up appointment in 7 days.) BENSON HINSON MD [Primary Care Provider] - 3 Days (Please call to svhedule a follow up appointment in 3 days and to set a repeat BMP and chest x-ray.) Ac Schaeffer MD [Active] - 10 Days (Please call to schedule a follow up appointment in 10 days.) Disposition: HOME Quality CORE MEASURES:: N/A
== END 2020-11-11 13:45 | disposition home or self-care (01) ==
LOC: ERS 18:20 → 2NO 22:17
PROVIDERS: ADMIT Internal Medicine; ATTEND Internal Medicine
DX: R06.02 Shortness of breath (principal); R07.89 Other chest pain; R42 Dizziness and giddiness; I12.9 Hypertensive chronic kidney disease with stage 1 through stage 4 chronic kidney disease, or unspecified chronic kidney disease; N18.30 Chronic kidney disease, stage 3 unspecified; D63.1 Anemia in chronic kidney disease; N17.9 Acute kidney failure, unspecified; I49.5 Sick sinus syndrome; R00.1 Bradycardia, unspecified; K21.9 Gastro-esophageal reflux disease without esophagitis; I31.3 Pericardial effusion (noninflammatory); G89.29 Other chronic pain; M54.9 Dorsalgia, unspecified; R91.8 Other nonspecific abnormal finding of lung field; E66.9 Obesity, unspecified; Z68.31 Body mass index [BMI] 31.0-31.9, adult; Z79.82 Long term (current) use of aspirin; Z79.899 Other long term (current) drug therapy; Z91.041 Radiographic dye allergy status; Z95.0 Presence of cardiac pacemaker; Z20.822 Contact with and (suspected) exposure to COVID-19
CPT/HCPCS: 0240U; 71045; 71275; 80048 ×2; 80053; 82550; 83690; 83735; 83880; 84484 ×3; 85025 ×3; 85379; 93005; 93306; 94640 ×5; 94760; 97116; 97139 ×2; 99285; 36415; 96372; 96374; 96375; 96376; G0378; J0456; J1650; J2930; J7050; J7512; J7620; Q9967

== ENCOUNTER 2020-12-24 16:13 | Outpatient (CLI) | payer MEDICARE | END 2020-12-24 16:14 | disposition home or self-care (01) | LOC: BICRAD 16:13 | PROVIDERS: ATTEND Internal Medicine Pulmonary Disease | DX: R06.00 Dyspnea, unspecified (principal) | CPT/HCPCS: 71046 ==

== ENCOUNTER 2022-12-04 09:36 | Outpatient (CLI) | payer MEDICARE | END 2022-12-04 09:37 | disposition home or self-care (01) | LOC: RAD 09:36 | PROVIDERS: ATTEND Internal Medicine Critical Care Medicine | DX: R06.00 Dyspnea, unspecified (principal) | CPT/HCPCS: 71046 ==

== ENCOUNTER 2023-11-30 09:16 | Outpatient (CLI) | payer MEDICARE | END 2023-11-30 09:17 | disposition home or self-care (01) | LOC: RAD 09:16 → BICRAD 09:17 | PROVIDERS: ATTEND Internal Medicine Critical Care Medicine | DX: R06.00 Dyspnea, unspecified (principal); I51.7 Cardiomegaly | CPT/HCPCS: 71046 ==